=== PATIENT | female | born 1985 | race African-American/Black ===

== ENCOUNTER 2017-01-16 22:03 | Inpatient (IN) | payer OTHER ==
[2017-01-16] MEDS ORDERED: NORMAL SALINE 1000 ML 1,000 ML IV ONE (22:29)
[2017-01-16] MEDS ORDERED: LORAZEPAM INJ 2 MG/1 ML VIAL IV ONE ×2 (22:29→23:31)
--- NOTE | 2017-01-16 22:33 | ER Document Report ---
ED General - General Chief Complaint: Chest Pain Stated Complaint: DIFFICULTY BREATHING Time Seen by Provider: 01/16/17 22:24 Notes: Patient is a 31-year-old female presents with complaint of difficulty breathing and chest pain. She says she is felt short of breath over the last 2 3 days but then approximately an hour ago she came very short of breath has pain in her chest rates into her her lower back. No fevers. She has had a dry cough. No blood with her cough. No vomiting. She says only abdominal pain she has is some soreness in her upper abdomen from breathing hard. She has no history of asthma. She is a smoker. She is recent diagnosed with lupus. She is on the Depakote shot. She denies any recent leg pain or leg swelling. No history of DVT or PE. No history of coronary disease. She does admit to some anxiety due to her recent diagnosis is of lupus and rheumatoid arthritis. TRAVEL OUTSIDE OF THE [place] IN LAST 30 DAYS: No - Related Data Allergies/Adverse Reactions: No Known Allergies Allergy (Verified 03/25/14 02:56) Past Medical History - Social History Smoking Status: Current Every Day Smoker Frequency of alcohol use: None Drug Abuse: None Family History: None Patient has suicidal ideation: No Patient has homicidal ideation: No Pulmonary Medical History: Reports: Hx Asthma Renal/ Medical History: Denies: Hx Peritoneal Dialysis Past Surgical History: Reports: Hx Section - x3, Hx Tubal Ligation - Immunizations Immunizations up to date: Yes Hx Diphtheria, Pertussis, Tetanus Vaccination: Yes Review of Systems - Review of Systems Notes: My Normal Review Basic REVIEW OF SYSTEMS: CONSTITUTIONAL : Denies fever, chills, or sweats. Denies recent illness. EENT: Denies eye, ear, throat, or mouth pain or symptoms. Denies nasal or sinus congestion. CARDIOVASCULAR: Has chest pain. RESPIRATORY: Difficulty breathing GASTROINTESTINAL: Denies abdominal pain. Denies nausea, vomiting, or diarrhea. GENITOURINARY: Denies difficulty urinating, painful urination, burning, frequency, or blood in urine MUSCULOSKELETAL: Mild back pain SKIN: Denies rash or skin lesions. NEUROLOGICAL: Denies altered mental status or loss of consciousness. Denies headache. Denies weakness or paralysis or loss of use of either side. Denies problems with gait or speech. Denies sensory or motor loss. PSYCHIATRIC: Some anxiety. ALL OTHER SYSTEMS REVIEWED AND NEGATIVE. Physical Exam - Vital signs Vitals: Temp Pulse Resp BP Pulse Ox 99.9 F 136 H 20 146/90 H 99 01/16/17 22:13 01/16/17 22:13 01/16/17 22:13 01/16/17 22:13 01/16/17 22:13 - Notes Notes: General Appearance: Patient is very anxious appearing. She is breathing rapidly. She seems panicked. Vitals: reviewed, See vital signs table. Head: no swelling or tenderness to the head Eyes: PERRL, EOMI, Conjuctiva clear Mouth: No decreasd moisture Throat: No tonsillar inflammation, No airway obstruction, No lymphadenopathy Lungs: No wheezing, No rales, No rhonci, No accessory muscle use, good air exchange bilaterally. Heart: Tachycardic rate, Regular rythm, No murmur, no rub Abdomen: Normal BS, soft, No rigidity, No abdominal tenderness, Extremities: strength 5/5 in all extremities, good pulses in all extremities, no swelling or tenderness in the extremities, no edema. Skin: warm, dry, appropriate color, no rash Neuro: speech clear, oriented x 3, normal affect, responds appropriately to questions. Course - Re-evaluation Re-evalutation: 01/17/17 01:01 Patient's primary care physician is Janeth Lowery with [facility]. Her lupus doctor is Samara monroe with [facility]. She is currently on methotrexate, prednisone, and metformin. 01/17/17 01:04 Patient CTA of the chest is negative. I did do a quick bedside echo. She has no pericardial effusion on my bedside echo. I do not see any obvious wall motion abnormality. 01/17/17 Urinalysis shows that the patient has polynephritis her urinary tract infection. I am assuming that may be the pain that she has along her diaphragm around to her back most likely is from her kidneys now based on her urinalysis showing the large leukocyte Estrace and signs of infection. We will obtain ultrasounds of the kidneys to make sure is no evidence of hydronephrosis to make sure that there is no evidence of infected kidney stone. Her symptoms are consistent with that of a kidney stone being that she does not have severe pain in her flanks or into her lower abdomen; however, I will still obtain ultrasounds to make sure there is no hydronephrosis or obstruction that could make this UTI more complicated. 01/17/17 03:49 Well-appearing. Patient's ultrasound shows no evidence of hydronephrosis. She likely has pyelonephritis which most likely is causing urosepsis causing her tachycardia. She is not septic shock. Her blood pressure has been normal. I have started on Rocephin. Blood cultures and urine cultures have been drawn. Patient will be admitted to the hospital. I did speak with Dr. Hui who agrees to admit the patient. Dictation of this chart was performed using voice recognition software; therefore, there may be some unintended grammatical errors. - Vital Signs Vital signs: Temp Pulse Resp BP Pulse Ox 100.7 F H 136 H 23 H 153/97 H 100 01/17/17 03:08 01/16/17 22:13 01/16/17 23:01 01/16/17 23:01 01/16/17 23:01 - Laboratory Result Diagrams: 01/16/17 22:35 01/16/17 22:35 Laboratory results interpreted by me: 01/16/17 01/16/17 01/17/17 22:35 22:35 00:10 WBC 21.3 H Hgb 10.0 L Hct 31.0 L MCV 75 L MCH 24.3 L RDW 18.5 H Seg Neuts % (Manual) 87 H Band Neutrophils % 2 L Lymphocytes % (Manual) 8 L Abs Neuts (Manual) 19.0 H Potassium 3.1 L Glucose 132 H Alkaline Phosphatase 127 H Albumin 3.4 L Urine Protein 30 H Urine Blood MODERATE H Urine Urobilinogen 4.0 H Ur Leukocyte Esterase LARGE H - EKG Interpretation by Me Additional EKG results interpreted by me: 01/16/17 22:33 EKG is reviewed and interpreted by me. EKG shows sinus tachycardia with rate of [address] segment elevation or depression. No ischemic T-wave inversions. SD interval, QRS duration, QTc intervals are within normal range. No old EKG available for comparison. Discharge - Discharge Clinical Impression: Pyelonephritis, Tachycardia Condition: Stable Admitting Provider: Hospitalist Unit Admitted: [facility]
[2017-01-16 22:49] LABS: MEAN CORPUSCULAR HEMOGLOBIN 24.3 pg (27.0-33.4); MEAN CORPUSCULAR HGB CONC 32.2 g/dL (32.0-36.0); MEAN CORPUSCULAR VOLUME 75 fl (80-97); RED BLOOD COUNT 4.11 10^6/uL (3.72-5.28); RED CELL DISTRIBUTION WIDTH 18.5 % (11.5-14.0); WHITE BLOOD COUNT 21.3 10^3/uL (4.0-10.5)
--- NOTE | 2017-01-16 23:01 | RADIOLOGY REPORT (SQ) ---
EXAM DESCRIPTION: CHEST SINGLE VIEW COMPLETED DATE/TIME: 01/16/2017 10:42 pm REASON FOR STUDY: dyspnea COMPARISON: 04/01/2012 EXAM PARAMETERS: NUMBER OF VIEWS: One view. TECHNIQUE: Single frontal radiographic view of the chest acquired. RADIATION DOSE: NA LIMITATIONS: None. FINDINGS: LUNGS AND PLEURA: No opacities, masses or pneumothorax. No pleural effusion. MEDIASTINUM AND HILAR STRUCTURES: No masses. Contour normal. HEART AND VASCULAR STRUCTURES: Heart normal in size. Normal vasculature. BONES: No acute findings. HARDWARE: None in the chest. OTHER: No other significant finding. IMPRESSION: NO ACUTE RADIOGRAPHIC FINDING IN THE CHEST. TECHNICAL DOCUMENTATION: JOB ID: [id number]
[2017-01-16 23:06] LABS: ALANINE AMINOTRANSFERASE 43 U/L (9-52); ALBUMIN 3.4 g/dL (3.5-5.0); ALKALINE PHOSPHATASE 127 U/L (38-126); ANION GAP 14 (5-19); ASPARTATE AMINO TRANSFERASE 32 U/L (14-36); BAND NEUTROPHILS % (MANUAL) 2 % (3-5); BASOPHILS % (MANUAL) 0 % (0-2); BILIRUBIN,DIRECT 0.4 mg/dL (0.0-0.4); BILIRUBIN,TOTAL 0.4 mg/dL (0.2-1.3); BLOOD UREA NITROGEN 13 mg/dL (7-20); CALCIUM 9.3 mg/dL (8.4-10.2); CARBON DIOXIDE 25 mmol/L (22-30); CHLORIDE 99 mmol/L (98-107); CREATINE KINASE 72 U/L (30-135); CREATININE RESULT 0.78 mg/dL (0.52-1.25); EOSINOPHILS % (MANUAL) 0 % (0-6); GLUCOSE 132 mg/dL (75-110); LYMPHOCYTES % (MANUAL) 8 % (13-45); POTASSIUM 3.1 mmol/L (3.6-5.0); SODIUM 137.7 mmol/L (137-145); TOTAL CELLS COUNTED 100; TOTAL PROTEIN 6.5 g/dL (6.3-8.2)
[2017-01-16 23:08] LABS: HYPOCHROMASIA 2+
[2017-01-16 23:09] LABS: ANISOCYTOSIS 2+; MICROCYTOSIS 1+; OVALOCYTES 1+; PLATELET CLUMPS PRESENT; SCHISTOCYTES SLIGHT; TARGET CELLS 1+; TEAR DROP CELLS SLIGHT
[2017-01-16 23:23] LABS: CREATINE KINASE MB 0.44 ng/mL (<4.55)
[2017-01-16 23:28] LABS: TROPONIN I < 0.012 ng/mL
[2017-01-17] MEDS ORDERED: NORMAL SALINE 1000 ML 1,000 ML IV ONE (00:46)
--- NOTE | 2017-01-17 00:52 | RADIOLOGY REPORT (SQ) ---
EXAM DESCRIPTION: CTA CHEST COMPLETED DATE/TIME: 01/17/2017 12:21 am REASON FOR STUDY: dyspnea, chest pain COMPARISON: CR, same day. TECHNIQUE: CT scan of the chest performed using helical scanning technique with dynamic intravenous contrast injection. Images reviewed with lung, soft tissue and bone windows. Reconstructed coronal and sagittal MPR images reviewed. Additional 3 dimensional post-processing performed to develop Maximal Intensity Projection images (MS P). All images stored on PACS. All CT scanners at this facility use dose modulation, iterative reconstruction, and/or weight based d osing when appropriate to reduce radiation dose to as low as reasonably achievable (ALARA). [facility]: Dose Right [facility]: CareDose [facility]: Dose Right [facility]: Teradose 4D [facility]: [employer] CONTRAST TYPE AND DOSE: contrast/concentration: Isovue 370.00 mg/ml; Total Contrast Delivered: 100.0 ml; Total Saline Delivered: 44.0 ml Contrast bolus optimized for the pulmonary arteries. Not diagnostic for the aorta. RENAL FUNCTION: None required. The patient is less than 50 years old. RADIATION DOSE: Up-to-date CT equipment and radiation dose reduction techniques were employed. CTDIv ol: 27.1 mGy. DLP: 692 mGy-cm. . LIMITATIONS: None. FINDINGS: LUNGS AND PLEURA: No masses, infiltrates, pneumothorax. No pleural effusions, calcificati ons. AORTA AND GREAT VESSELS: No aneurysm. Contrast bolus not optimized for the aorta. HEART: No pericardial effusion. No significant coronary artery calcifications. PULMONARY ARTERIES: No emboli visualized in the main pulmonary arteries or the segmental branches. HILAR AND MEDIASTINAL STRUCTURES: No identified masses or abnormal nodes. HARDWARE: None in the chest. UPPER ABDOMEN: No significant findings. Limited exam. Small hiatal hernia. THYROID AND OTHER SOFT TISSUES: No masses. No adenopathy. BONES: No acute or significant finding. 3D MIPS: Confirm above findings. OTHER: No other significant finding. IMPRESSION: No acute cardiopulmonary findings. NO PULMONARY EMBOLI. COMMENT: Quality ID # [id number]: Final reports with documentation of one or more dose reduction techniques (e.g., Automated exposure control, adjustment of the mA and/or kV according to patient size, use of iterative reconstruction technique) TECHNICAL DOCUMENTATION: JOB ID: [id number] [employer]- All Rights Reserved
[2017-01-17] MEDS ORDERED: POTASSIUM CHLORIDE 10 MEQ TABLET.SA PO ONE ×2 (01:02→11:33)
[2017-01-17 01:24] LABS: APPEARANCE,URINE SLIGHTLY-CLOUDY; BILIRUBIN,URINE NEGATIVE (NEGATIVE); GLUCOSE, URINE NEGATIVE (NEGATIVE); KETONES,URINE NEGATIVE (NEGATIVE); LEUKOCYTE ESTERASE,URINE LARGE (NEGATIVE); NITRITE,URINE NEGATIVE (NEGATIVE); PROTEIN,URINE 30 mg/dL (NEGATIVE); URINE SPECIFIC GRAVITY 1.035
[2017-01-17] MEDS ORDERED: CEFTRIAXONE INJ 1000 MG VIAL IV ONE (01:40)
[2017-01-17 01:55] LABS: URINE BARBITURATES SCREEN NEGATIVE; URINE METHADONE SCREEN NEGATIVE; URINE OPIATES LOW NEGATIVE; URINE PHENCYCLIDINE SCREEN NEGATIVE
[2017-01-17] MEDS ORDERED: ACETAMINOPHEN 325 MG TABLET PO ONE (03:14)
--- NOTE | 2017-01-17 03:44 | RADIOLOGY REPORT (SQ) ---
EXAM DESCRIPTION: U/S RETROPERITON (RENAL/AORTA) COMPLETED DATE/TIME: 01/17/2017 3:28 am REASON FOR STUDY: pyelonephritis, eval for hydro COMPARISON: None. TECHNIQUE: Dynamic and static grayscale images acquired of the kidneys and bladder and recorded on P ACS. Additional selected color Doppler and spectral images recorded. LIMITATIONS: None. FINDINGS: RIGHT KIDNEY: Normal size. 13.3 cm. Normal echogenicity. No solid or suspicious masses. No hydronephrosis. No calcifications. LEFT KIDNEY: Normal size. 12.6 cm. Normal echogenicity. No solid or suspicious masses. No hydronep hrosis. No calcifications. BLADDER: No masses. Bilateral ureteral jet flow demonstrated. OTHER FINDINGS: No other significant finding. IMPRESSION: NORMAL RENAL AND BLADDER ULTRASOUND. TECHNICAL DOCUMENTATION: JOB ID: [id number] [email or web address]- All Rights Reserved
[2017-01-17] MEDS ORDERED: IPRATROPIUM/ALBUTEROL 0.5-2.5 MG/3 ML AMPUL NEB PRN (03:50)
[2017-01-17] MEDS ORDERED: ONDANSETRON HCL INJ/PF 4 MG/2 ML SDV IV PRN ×2 (03:50→13:00)
[2017-01-17] MEDS ORDERED: MAGNESIUM HYDROXIDE SUSP 30 ML UDCUP PO PRN (03:50)
[2017-01-17 04:11] LABS: ANION GAP 11 (5-19); BLOOD UREA NITROGEN 13 mg/dL (7-20); CALCIUM 8.8 mg/dL (8.4-10.2); CARBON DIOXIDE 26 mmol/L (22-30); CHLORIDE 103 mmol/L (98-107); CREATININE RESULT 0.73 mg/dL (0.52-1.25); GLUCOSE 131 mg/dL (75-110); POTASSIUM 3.3 mmol/L (3.6-5.0); SODIUM 140.4 mmol/L (137-145)
[2017-01-17 04:38] LABS: HEMATOCRIT 31.4 % (36.0-47.0); HGB HCT DIFFERENCE -1.4; MEAN CORPUSCULAR HEMOGLOBIN 23.9 pg (27.0-33.4); MEAN CORPUSCULAR VOLUME 75 fl (80-97); RED CELL DISTRIBUTION WIDTH 18.9 % (11.5-14.0); WHITE BLOOD COUNT 21.8 10^3/uL (4.0-10.5)
[2017-01-17] MEDS: NORMAL SALINE 1000 ML 1,000 ML IV SCH ×2 (04:46→07:40)
[2017-01-17] MEDS: POTASSI CL 20 MEQ/50 ML RIDER 20 MEQ/50 ML RTUPB IV SCH ×2 (04:47→07:39)
[2017-01-17 04:52] LABS: BAND NEUTROPHILS % (MANUAL) 3 % (3-5); BASOPHILS % (MANUAL) 0 % (0-2); EOSINOPHILS % (MANUAL) 0 % (0-6); LYMPHOCYTES % (MANUAL) 18 % (13-45); TOTAL CELLS COUNTED 100
[2017-01-17 04:57] LABS: ANISOCYTOSIS 2+; HYPOCHROMASIA 1+; MICROCYTOSIS 1+; OVALOCYTES SLIGHT; POIKILOCYTOSIS SLIGHT; TARGET CELLS SLIGHT; TEAR DROP CELLS SLIGHT
[2017-01-17] MEDS ORDERED: KETOROLAC TROMETHAMINE INJ/PF 30 MG/1 ML SDV IV PRN ×2 (05:32→13:00)
--- NOTE | 2017-01-17 05:50 | PDOC H&P ---
History of Present Illness Admission Date/PCP: 01/17/17 03:50 Patient complains of: Diffuse body aches History of Present Illness: ELIEL VALENTIN is a 31 year old female with a past medical history of obesity, diabetes, lupus and rheumatoid arthritis on methotrexate who had been in her usual state of health until approximately 48 hours prior to presentation with generalized aches and pains, shortness of breath and lower back pain. Denying dysuria or malodorous urine. In the emergency room she had an extensive workup including CTA of the chest and renal ultrasound which were negative. She has however found to have tachycardia, leukocytosis and pyuria and referred to the hospitalist for admission. Past Medical History Pulmonary Medical History: Reports: Asthma Endocrine Medical History: Reports: Diabetes Mellitus Type 2 Musculoskeltal Medical History: Reports: Arthritis Past Surgical History Past Surgical History: Reports: Section - x3, Tubal Ligation Social History Information Source: Patient, [facility] Records Lives with: Family Smoking Status: Current Every Day Smoker Frequency of Alcohol Use: None Drugs: None - Advance Directive Resuscitation Status: Full Code Family History Family History: None, DM Parental Family History Reviewed: Yes Children Family History Reviewed: Yes Sibling(s) Family History Reviewed.: Yes Medication/Allergy Home Medications: Cyclobenzaprine HCl [Flexeril 10 Mg Tablet] 10 mg PO TID #30 tablet 10/06/13 Naproxen 500 mg PO BID #20 tablet 10/06/13 Oxycodone HCl/Acetaminophen [Percocet 5-325 mg Tablet] 1 - 2 tab PO ASDIR PRN # 20 tablet 10/06/13 Cyclobenzaprine HCl [Flexeril 10 mg Tablet] 10 mg PO TIDP PRN #30 tab 03/25/14 Hydrocodone/Acetaminophen [Vicodin 5-300 mg Tablet] 1 - 2 tab PO ASDIR PRN #15 tab 03/25/14 Ibuprofen [Motrin 800 mg Tablet] 800 mg PO MEALS #90 tablet 03/25/14 Prednisone [Deltasone 10 mg Tablet] 10 mg PO ASDIR PRN #21 tablet 03/25/14 Allergies/Adverse Reactions: No Known Allergies Allergy (Verified 03/25/14 02:56) Review of Systems Constitutional: ABSENT: chills, fever(s), headache(s), weight gain, weight loss Eyes: ABSENT: visual disturbances Ears: ABSENT: hearing changes Cardiovascular: ABSENT: chest pain, dyspnea on exertion, edema, orthropnea, palpitations Respiratory: ABSENT: cough, hemoptysis Gastrointestinal: PRESENT: constipation. ABSENT: abdominal pain, diarrhea, hematemesis, hematochezia, nausea, vomiting Genitourinary: ABSENT: dysuria, hematuria Musculoskeletal: ABSENT: joint swelling Integumentary: ABSENT: rash, wounds Neurological: ABSENT: abnormal gait, abnormal speech, confusion, dizziness, focal weakness, syncope Psychiatric: ABSENT: anxiety, depression, homidical ideation, suicidal ideation Endocrine: ABSENT: cold intolerance, heat intolerance, polydipsia, polyuria Hematologic/Lymphatic: ABSENT: easy bleeding, easy bruising Physical Exam Vital Signs: Temp Pulse Resp BP Pulse Ox 100.0 F 136 H 27 H 119/76 99 01/17/17 04:55 01/16/17 22:13 01/17/17 04:01 01/17/17 04:01 01/17/17 04:01 General appearance: PRESENT: no acute distress, well-developed, well-nourished Head exam: PRESENT: atraumatic, normocephalic Eye exam: PRESENT: conjunctiva pink, EOMI, PERRLA. ABSENT: scleral icterus Ear exam: PRESENT: normal external ear exam Mouth exam: PRESENT: moist, tongue midline Neck exam: ABSENT: carotid bruit, JVD, lymphadenopathy, thyromegaly Respiratory exam: PRESENT: clear to auscultation [place]. ABSENT: rales, rhonchi, wheezes Cardiovascular exam: PRESENT: RRR. ABSENT: diastolic murmur, rubs, systolic murmur Pulses: PRESENT: normal dorsalis pedis pul Vascular exam: PRESENT: normal capillary refill GI/Abdominal exam: PRESENT: normal bowel sounds, soft. ABSENT: distended, guarding, mass, organolmegaly, rebound, tenderness Rectal exam: PRESENT: deferred Extremities exam: PRESENT: full ROM. ABSENT: calf tenderness, clubbing, pedal edema Neurological exam: PRESENT: alert, awake, oriented to person, oriented to place , oriented to time, oriented to situation, CN II-XII grossly intact. ABSENT: motor sensory deficit Psychiatric exam: PRESENT: appropriate affect, normal mood. ABSENT: homicidal ideation, suicidal ideation Skin exam: PRESENT: dry, intact, warm. ABSENT: cyanosis, rash Results Impressions: Chest X-Ray 01/16/17 22:29 IMPRESSION: NO ACUTE RADIOGRAPHIC FINDING IN THE CHEST. Chest/Abdomen CTA 01/16/17 23:30 IMPRESSION: No acute cardiopulmonary findings. NO PULMONARY EMBOLI. Renal Ultrasound 01/17/17 01:45 IMPRESSION: NORMAL RENAL AND BLADDER ULTRASOUND. Assessment & Plan - Diagnosis (1) Pyelonephritis Is this a current diagnosis for this admission?: Yes Plan: Telemetry admission, no evidence for obstruction empiric antibiotics, symptomatic management, follow-up CBC blood and urine culture (2) Sepsis Is this a current diagnosis for this admission?: Yes Plan: IV fluid challenge and reevaluation. (3) Diabetes Is this a current diagnosis for this admission?: Yes Plan: Outpatient regiment with sliding scale coverage (4) Anemia Is this a current diagnosis for this admission?: Yes Plan: Appears microcytic will initiate iron empirically and follow-up anemia labs. - Time Time Spent: 50 to 70 Minutes - Inpatient Certification Medical Necessity: Need Close Monitoring Due to Risk of Patient Decompensation
[2017-01-17] MEDS: ACETAMINOPHEN 325 MG TABLET PO PRN (08:21)
[2017-01-17] MEDS: HEPARIN SOD (PORCINE) 5,000 UNIT/ML 1 ML SYRINGE SUBCUT SCH ×3 (08:22→22:02)
[2017-01-17 09:11] LABS: FOLATE 5.62 ng/mL (>2.76)
[2017-01-17] MEDS ORDERED: PREDNISONE 10 MG TABLET PO SCH (10:00)
--- NOTE | 2017-01-17 10:03 | EKG REPORT ---
SEVERITY:- BORDERLINE ECG - SINUS TACHYCARDIA BORDERLINE T ABNORMALITIES, ANTERIOR LEADS : Confirmed by: Laura Hong MD 17-Jan-2017 10:02:22
[2017-01-17] MEDS: CEFTRIAXONE 1 GM/D5W RTU 1 GM/50 ML RTUPB IV SCH (10:06)
[2017-01-17] MEDS: DOCUSATE SODIUM 100 MG CAPSULE PO SCH ×2 (10:06→17:54)
[2017-01-17] MEDS ORDERED: NORMAL SALINE 1000 ML 1,000 ML IV PRN (11:28)
[2017-01-17] MEDS ORDERED: SENNOSIDES/DOCUSATE 8.6-50 MG 1 EACH TABLET PO PRN (12:16)
[2017-01-17] MEDS ORDERED: NICOTINE 7 MG/24 HR PATCH.TD24 TD ONE (12:45)
[2017-01-17] MEDS ORDERED: METFORMIN HCL 500 MG TABLET PO ONE (13:00)
[2017-01-17] MEDS: HYDROXYZINE PAMOATE 50 MG CAPSULE PO PRN (14:00)
--- NOTE | 2017-01-17 15:00 | PDOC PROGRESS REPORT ---
Subjective Progress Note for:: 01/17/17 Subjective:: Patient had a fever this morning of 101.4 Degrees Fahrenheit. Patient reports her shortness of breath has improved. Patient admits to constipation. Patient denies chest pain, shortness of breath, abdominal pain, nausea, vomiting, diarrhea, headache, new onset weakness. Patient admits to cocaine usage this weekend. Physical Exam Vital Signs: Temp Pulse Resp BP Pulse Ox 98.8 F 89 14 125/85 100 01/17/17 11:25 01/17/17 11:53 01/17/17 11:53 01/17/17 11:25 01/17/17 11:53 Intake & Output 01/16/17 01/17/17 01/18/17 06:59 06:59 06:59 Intake Total 1000 250 Balance 1000 250 Weight 97.3 kg Exam: General: Mildly diaphoretic, ill-appearing, obese, awake alert and oriented x3, no acute respiratory distress HEENT: AT/NC, PERRL, EOMI, oropharynx is moist, pink, no scleral icterus, no conjunctival injection Neck: No JVD, trachea midline Chest: Clear to auscultation bilaterally, no wheezes rhonchi or rales CV: Regular rate and rhythm, normal S1 and S2, no murmur, rub, or gallop Abdomen: Soft, nontender to palpation, nondistended, active bowel sounds; no rebound, rigidity, or guarding Extremities: No cyanosis, clubbing or edema Neuro: Cranial nerves II through XII are grossly intact without focal deficits; awake alert and oriented x3 Psych: Tearful and anxious Results Laboratory Results: 01/17/17 01/17/17 06:03 06:03 Retic Count (auto) 0.46 L Absolute Retic 0.017 L Iron 18.1 L TIBC 315 % Saturation 6 Ferritin 51.00 Vitamin B12 342.0 Folate 5.62 Impressions: Chest X-Ray 01/16/17 22:29 IMPRESSION: NO ACUTE RADIOGRAPHIC FINDING IN THE CHEST. Chest/Abdomen CTA 01/16/17 23:30 IMPRESSION: No acute cardiopulmonary findings. NO PULMONARY EMBOLI. Renal Ultrasound 01/17/17 01:45 IMPRESSION: NORMAL RENAL AND BLADDER ULTRASOUND. Assessment & Plan - Diagnosis (1) Sepsis Qualifiers: Sepsis type: sepsis due to unspecified organism Qualified Code(s): A41.9 - Sepsis, unspecified organism Is this a current diagnosis for this admission?: Yes Plan: Sepsis criteria met on admission: Selected Entries 01/16/17 01/17/17 22:13 07:26 Temperature 101.4 F H Pulse Rate 136 H Respiratory 20 Rate Patient appears to have pyelonephritis. Patient has received 5 L bolus. Continue IV fluids to maintain map greater than 65. Patient on Rocephin for this. (2) Pyelonephritis Is this a current diagnosis for this admission?: Yes Plan: Continue Rocephin pending culture (3) Iron deficiency anemia due to chronic blood loss Is this a current diagnosis for this admission?: Yes Plan: Patient reports that she is on Depo-Provera for her menorrhagia. Iron studies reveal iron deficiency anemia. Place patient on ferrous sulfate p.o. twice daily (4) Cocaine abuse Is this a current diagnosis for this admission?: Yes Plan: Have discouraged even recreational use (5) Tobacco abuse Is this a current diagnosis for this admission?: Yes Plan: Nicotine patch Encourage cessation (6) Rheumatoid arthritis Qualifiers: Rheumatoid arthritis location: unspecified site Rheumatoid factor presence : unspecified presence Qualified Code(s): M06.9 - Rheumatoid arthritis, unspecified Is this a current diagnosis for this admission?: Yes Plan: Patient is following with a field reimbursement manager as an outpatient. Continue daily prednisone. Patient reports that she took her methotrexate yesterday. Continue folic acid rescue. (7) Anemia Qualifiers: Anemia type: iron deficiency Iron deficiency anemia type: chronic blood loss Qualified Code(s): D50.0 - Iron deficiency anemia secondary to blood loss (chronic) Is this a current diagnosis for this admission?: Yes Plan: Patient has anemia secondary to iron deficiency from chronic blood loss, but also likely secondary to anemia of chronic disease, and anemia related to her methotrexate usage. 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 Consider stress dose steroids if blood pressure drops, but she reports she is only been on steroids for a couple of weeks. (10) Morbid obesity with BMI of 40.0-44.9, adult Is this a current diagnosis for this admission?: Yes Plan: Dietary consult Encourage weight loss (11) Depression Qualifiers: Depression Type: unspecified Qualified Code(s): F32.9 - Major depressive disorder, single episode, unspecified Is this a current diagnosis for this admission?: Yes Plan: Continue patient's Effexor. Have consulted psychology as patient appears to be quite anxious and have added hydroxyzine for this. Patient appears to have quite a bit of anxiety regarding her health disorders. Appreciate their input. - Time Time Spent with patient: 35 or more minutes Medications reviewed and adjusted accordingly: Yes
[2017-01-17] MEDS: HYDROCODONE/ACETAMINOPHEN 5-325 MG TABLET PO PRN (15:34)
[2017-01-17] MEDS: METFORMIN HCL 500 MG TABLET PO SCH (17:54)
[2017-01-17] MEDS: FERROUS SULFATE 325 MG TABLET PO SCH (17:54)
[2017-01-17] MEDS ORDERED: KETOROLAC TROMETHAMINE INJ/PF 30 MG/1 ML SDV ONE (21:58)
[2017-01-17] MEDS ORDERED: KETOROLAC TROMETHAMINE INJ/PF 30 MG/1 ML SDV IV ONE (22:00)
[2017-01-18] MEDS: HYDROCODONE/ACETAMINOPHEN 5-325 MG TABLET PO PRN ×3 (03:50→23:48)
[2017-01-18] MEDS: HEPARIN SOD (PORCINE) 5,000 UNIT/ML 1 ML SYRINGE SUBCUT SCH ×3 (06:09→21:31)
[2017-01-18 06:54] LABS: HEMATOCRIT 26.6 % (36.0-47.0); HEMOGLOBIN 8.7 g/dL (12.0-15.5); HGB HCT DIFFERENCE -0.5; MEAN CORPUSCULAR HEMOGLOBIN 24.5 pg (27.0-33.4); MEAN CORPUSCULAR HGB CONC 32.8 g/dL (32.0-36.0); MEAN CORPUSCULAR VOLUME 75 fl (80-97); RED BLOOD COUNT 3.57 10^6/uL (3.72-5.28); RED CELL DISTRIBUTION WIDTH 18.7 % (11.5-14.0); WHITE BLOOD COUNT 15.4 10^3/uL (4.0-10.5)
[2017-01-18 06:55] LABS: ABSOLUTE BASOPHILS # (AUTO) 0.1 10^3/uL (0.0-0.2); ABSOLUTE LYMPHOCYTES (AUTO) 2.6 10^3/uL (0.5-4.7); ABSOLUTE MONOCYTES (AUTO) 0.4 10^3/uL (0.1-1.4); ABSOLUTE NEUT (AUTO) 12.3 10^3/uL (1.7-8.2); BASOPHILS % (AUTO) 0.4 % (0-2); EOSINOPHILS % (AUTO) 0.2 % (0-6); LYMPHOCYTES % (AUTO) 16.8 % (13-45); MONOCYTES % (AUTO) 2.9 % (3-13); SEGMENTED NEUTROPHILS % (AUTO) 79.7 % (42-78)
[2017-01-18 06:56] LABS: ANION GAP 9 (5-19); BLOOD UREA NITROGEN 11 mg/dL (7-20); CALCIUM 8.6 mg/dL (8.4-10.2); CARBON DIOXIDE 21 mmol/L (22-30); CHLORIDE 109 mmol/L (98-107); CREATININE RESULT 0.67 mg/dL (0.52-1.25); GLUCOSE 102 mg/dL (75-110); POTASSIUM 4.1 mmol/L (3.6-5.0); SODIUM 138.8 mmol/L (137-145)
[2017-01-18] MEDS: NICOTINE 7 MG/24 HR PATCH.TD24 TD SCH (08:29)
[2017-01-18] MEDS: DOCUSATE SODIUM 100 MG CAPSULE PO SCH ×2 (08:29→17:44)
[2017-01-18] MEDS: VENLAFAXINE HCL 75 MG CAP.SR.24H PO SCH (08:30)
[2017-01-18] MEDS: ACETAMINOPHEN 325 MG TABLET PO PRN (08:30)
[2017-01-18] MEDS: PREDNISONE 5 MG TABLET PO SCH (08:31)
[2017-01-18] MEDS: CEFTRIAXONE 1 GM/D5W RTU 1 GM/50 ML RTUPB IV SCH (08:31)
[2017-01-18] MEDS: FOLIC ACID 1 MG TABLET PO SCH (08:31)
[2017-01-18] MEDS: METFORMIN HCL 500 MG TABLET PO SCH ×2 (08:31→16:01)
[2017-01-18] MEDS: FERROUS SULFATE 325 MG TABLET PO SCH ×2 (08:31→17:44)
[2017-01-18] MEDS: PRENATAL VITAMIN W-O CA NO5/FE FUMARATE/FA CAPSULE PO SCH (08:36)
--- NOTE | 2017-01-18 09:48 | EKG REPORT ---
SEVERITY:- BORDERLINE ECG - SINUS TACHYCARDIA INFERIOR Q WAVES, PROBABLY NORMAL VARIATION BORDERLINE T ABNORMALITIES, INFERIOR LEADS : Confirmed by: Gabriela Puente 18-Jan-2017 09:47:11
[2017-01-18] MEDS ORDERED: VENLAFAXINE HCL 75 MG TABLET PO SCH (10:00)
[2017-01-18] MEDS ORDERED: (PENDING PHARMACY ID) (Prednisone [Prednisone] 5 MG) PO SCH (10:00)
[2017-01-18 11:26] LABS: CREATINE KINASE MB 1.76 ng/mL (<4.55)
[2017-01-18 11:32] LABS: TROPONIN I 0.166 ng/mL
--- NOTE | 2017-01-18 15:06 | PDOC PROGRESS REPORT ---
Subjective Progress Note for:: 01/18/17 Subjective:: Patient is sitting comfortably on the bed getting her hair done by her niece when I visited her. Patient had a T-max of 102.8 Degrees Fahrenheit. Patient reports she is still constipated. Patient denies abdominal pain, nausea , vomiting, diarrhea, headache, new onset weakness. Patient had an episode of chest pain which was improved with Vistaril. Physical Exam Vital Signs: Temp Pulse Resp BP Pulse Ox 100.5 F H 115 H 14 130/83 H 98 01/18/17 07:25 01/18/17 10:12 01/18/17 10:12 01/18/17 07:25 01/18/17 10:12 Intake & Output 01/17/17 01/18/17 01/19/17 06:59 06:59 06:59 Intake Total 1000 4855 400 Output Total 1500 Balance 1000 3355 400 Weight 97.3 kg 102.3 kg Exam: General: obese, awake alert and oriented x3, no acute respiratory distress HEENT: AT/NC, PERRL, EOMI, oropharynx is moist, pink, no scleral icterus, no conjunctival injection Neck: No JVD, trachea midline Chest: Clear to auscultation bilaterally, no wheezes rhonchi or rales CV: Regular rate and rhythm, normal S1 and S2, no murmur, rub, or gallop Abdomen: Soft, nontender to palpation, nondistended, active bowel sounds; no rebound, rigidity, or guarding Extremities: No cyanosis, clubbing or edema Neuro: Cranial nerves II through XII are grossly intact without focal deficits; awake alert and oriented x3 Psych: Normal mood and affect Results Laboratory Results: 01/18/17 06:09 01/18/17 06:09 01/18/17 01/18/17 06:09 06:09 WBC 15.4 H RBC 3.57 L Hgb 8.7 L Hct 26.6 L MCV 75 L MCH 24.5 L MCHC 32.8 RDW 18.7 H Plt Count 334 Seg Neutrophils % 79.7 H Lymphocytes % 16.8 Monocytes % 2.9 L Eosinophils % 0.2 Basophils % 0.4 Absolute Neutrophils 12.3 H Absolute Lymphocytes 2.6 Absolute Monocytes 0.4 Absolute Eosinophils 0.0 Absolute Basophils 0.1 Sodium 138.8 Potassium 4.1 Chloride 109 H Carbon Dioxide 21 L Anion Gap 9 BUN 11 Creatinine 0.67 Est GFR ( Amer) > 60 Est GFR (Non-Af Amer) > 60 Glucose 102 Calcium 8.6 Magnesium 2.0 01/18/17 01/18/17 10:16 10:16 Creatine Kinase 87 CK-MB (CK-2) 1.76 Troponin I 0.166 Impressions: Chest X-Ray 01/16/17 22:29 IMPRESSION: NO ACUTE RADIOGRAPHIC FINDING IN THE CHEST. Chest/Abdomen CTA 01/16/17 23:30 IMPRESSION: No acute cardiopulmonary findings. NO PULMONARY EMBOLI. Renal Ultrasound 01/17/17 01:45 IMPRESSION: NORMAL RENAL AND BLADDER ULTRASOUND. Assessment & Plan - Diagnosis (1) Sepsis Qualifiers: Sepsis type: sepsis due to unspecified organism Qualified Code(s): A41.9 - Sepsis, unspecified organism Is this a current diagnosis for this admission?: Yes Plan: Sepsis criteria met on admission: Selected Entries 01/16/17 01/17/17 22:13 07:26 Temperature 101.4 F H Pulse Rate 136 H Respiratory 20 Rate Patient appears to have pyelonephritis. Patient has received 5 L bolus. Maintain map greater than 65. Due to patient's increasing fever curve, transition her to Zosyn. (2) Pyelonephritis Is this a current diagnosis for this admission?: Yes Plan: Transition to Zosyn pending results Patient continues to require inpatient admission for IV antibiotics and telemetry monitoring. (3) Iron deficiency anemia due to chronic blood loss Is this a current diagnosis for this admission?: Yes Plan: Patient reports that she is on Depo-Provera for her menorrhagia. Iron studies reveal iron deficiency anemia. Place patient on ferrous sulfate p.o. twice daily and Colace (4) Tobacco abuse Is this a current diagnosis for this admission?: Yes Plan: Nicotine patch Encourage cessation (5) Rheumatoid arthritis Qualifiers: Rheumatoid arthritis location: unspecified site Rheumatoid factor presence : unspecified presence Qualified Code(s): M06.9 - Rheumatoid arthritis, unspecified Is this a current diagnosis for this admission?: Yes Plan: Patient is following with a clinical nutrition manager as an outpatient. Continue daily prednisone. Patient reports that she took her methotrexate yesterday. Continue folic acid rescue. (6) Anemia Qualifiers: Anemia type: iron deficiency Iron deficiency anemia type: chronic blood loss Qualified Code(s): D50.0 - Iron deficiency anemia secondary to blood loss (chronic) Is this a current diagnosis for this admission?: Yes Plan: Patient has anemia secondary to iron deficiency from chronic blood loss, but also likely secondary to anemia of chronic disease, and anemia related to her methotrexate usage. 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 Consider stress dose steroids if blood pressure drops, but she reports she is only been on steroids for a couple of weeks. (9) Morbid obesity with BMI of 40.0-44.9, adult Is this a current diagnosis for this admission?: Yes (10) Depression Qualifiers: Depression Type: unspecified Qualified Code(s): F32.9 - Major depressive disorder, single episode, unspecified Is this a current diagnosis for this admission?: Yes Plan: Have consulted psychology. Appreciate their input. (11) Cocaine abuse Is this a current diagnosis for this admission?: Yes Plan: Have discouraged even recreational use (12) Elevated troponin I level Is this a current diagnosis for this admission?: Yes Plan: In the setting of patient's sepsis and tachycardia feel that this minor elevation is secondary to troponin I leak due to rate related and sepsis concerns. We will continue to trend these however. Continue to monitor patient on telemetry. - Time Time Spent with patient: 25-34 minutes Medications reviewed and adjusted accordingly: Yes - Inpatient Certification Based on my medical assessment, after consideration of the patient's comorbidities, presenting symptoms, or acuity I expect that the services needed warrant INPATIENT care.: Yes I certify that my determination is in accordance with my understanding of Medicare's requirements for reasonable and necessary INPATIENT services [42 CFR 412.3e].: Yes Medical Necessity: Need For IV Fluids, Need For Continuous Telemetry Monitoring , Need for IV Antibiotics Post Hospital Care: D/C [employer] Documentation
[2017-01-18] MEDS ORDERED: BISACODYL 10 MG SUPP.RECT PR ONE (16:00)
[2017-01-18] MEDS ORDERED: PIPERACILLIN SODIUM/TAZOBACTAM 4.5 GM in NORMAL SALINE 100 ML IV ONE (16:00)
[2017-01-18] MEDS: HYDROXYZINE PAMOATE 50 MG CAPSULE PO PRN ×2 (17:46→23:48)
[2017-01-18] MEDS: PIPERACILLIN SODIUM/TAZOBACTAM 4.5 GM in NORMAL SALINE 100 ML IV SCH (21:31)
[2017-01-18] MEDS: ZOLPIDEM TARTRATE 5 MG TABLET PO PRN (21:31)
[2017-01-19] MEDS: PIPERACILLIN SODIUM/TAZOBACTAM 4.5 GM in NORMAL SALINE 100 ML IV SCH ×4 (02:55→20:37)
[2017-01-19 03:51] LABS: HEMATOCRIT 25.5 % (36.0-47.0); HEMOGLOBIN 8.6 g/dL (12.0-15.5); HGB HCT DIFFERENCE 0.3; MEAN CORPUSCULAR HGB CONC 33.7 g/dL (32.0-36.0); MEAN CORPUSCULAR VOLUME 74 fl (80-97); RED BLOOD COUNT 3.43 10^6/uL (3.72-5.28); RED CELL DISTRIBUTION WIDTH 18.6 % (11.5-14.0); WHITE BLOOD COUNT 11.5 10^3/uL (4.0-10.5)
[2017-01-19 04:09] LABS: ANISOCYTOSIS 2+; BAND NEUTROPHILS % (MANUAL) 1 % (3-5); BASOPHILS % (MANUAL) 1 % (0-2); EOSINOPHILS % (MANUAL) 0 % (0-6); LYMPHOCYTES % (MANUAL) 12 % (13-45); MICROCYTOSIS 1+; TOTAL CELLS COUNTED 100; TOXIC VACUOLATION PRESENT
[2017-01-19 04:12] LABS: PLATELET CLUMPS PRESENT; TARGET CELLS 2+; TEAR DROP CELLS SLIGHT
[2017-01-19 04:14] LABS: HYPOCHROMASIA 1+; POIKILOCYTOSIS SLIGHT; POLYCHROMASIA SLIGHT
[2017-01-19] MEDS: HEPARIN SOD (PORCINE) 5,000 UNIT/ML 1 ML SYRINGE SUBCUT SCH ×3 (05:41→21:02)
[2017-01-19] MEDS: ACETAMINOPHEN 325 MG TABLET PO PRN (05:41)
[2017-01-19] MEDS: PREDNISONE 5 MG TABLET PO SCH (09:04)
[2017-01-19] MEDS: DOCUSATE SODIUM 100 MG CAPSULE PO SCH ×2 (09:05→17:08)
[2017-01-19] MEDS: FERROUS SULFATE 325 MG TABLET PO SCH ×2 (09:05→17:08)
[2017-01-19] MEDS: FOLIC ACID 1 MG TABLET PO SCH (09:05)
[2017-01-19] MEDS: METFORMIN HCL 500 MG TABLET PO SCH ×2 (09:05→17:08)
[2017-01-19] MEDS: PRENATAL VITAMIN W-O CA NO5/FE FUMARATE/FA CAPSULE PO SCH (09:06)
[2017-01-19] MEDS: VENLAFAXINE HCL 75 MG CAP.SR.24H PO SCH (09:06)
[2017-01-19] MEDS: NICOTINE 7 MG/24 HR PATCH.TD24 TD SCH (09:06)
[2017-01-19] MEDS: HYDROXYZINE PAMOATE 50 MG CAPSULE PO PRN (09:15)
--- NOTE | 2017-01-19 13:30 | PSYCHOLOGICAL NOTE ---
Psych Note - Psych Note Psych Note: ELIEL VALENTIN is a 31 year old female presented to [facility] with generalized aches and pains, shortness of breath and lower back pain. Psychiatric consultation was requested because patient is demonstrating high anxiety. Patient disclosed that she drove herself to [facility] ED because she was experiencing shortness of breath. She states that she was admitted because of dehydration and a kidney infection. Patient states that she does have a diagnosis of depression but denies having a outpatient mental health provider or receiving any inpatient treatments for psychiatric care. Patient disclosed that she received her depression medication, Effexor, from her primary care physician. She states she has been taking this for approximately 8-9 months. Clinician notes patient started to cry at this point. Patient states "I have been crying all day I am so sorry I does have a lot going on." Patient disclosed that she was recently diagnosed with lupus, diabetes, and osteoarthritis approximately 1 month ago. She continued disclosed that she just keeps taking care of anybody else and her current admission into the hospital as an example of this. She states that she does not take care of her self and so busy taking care of her 3 children that she let a kidney infection get to the point where she needed hospitalization. When asked when the last time patient was able to do anything fun for herself patient started to laugh and stated "last night I actually went out to dinner and that is when I came home and realized he was having difficulty breathing" so came to [facility] ED. Patient is alert and orientated to person place, time and circumstance. Mood is dysphoric with tearful affect. Patient denies suicidal and homicidal ideation. Patient denies auditory visual hallucinations. Delusions were absent and behaviors congruent with intact reality based presentation i.e. organized, linear, rational thinking. Eye contact was well-maintained. Intellectual abilities appear to be within the average range. Conversational speech was within normal rate tone and prosody. Attention and concentration was good. Insight, judgment, impulse control is good. 300 (F32.9) unspecified depressive disorder per history provided by patient Impression\\plan: Patient is considered psychiatrically clear for discharge. Patient does not meet IVC criteria per [place] GS 122C. Patient denies suicidal homicidal ideation. Delusions were absent and behaviors congruent with intact reality based presentation i.e. organized, linear, rational thinking. Patient is experiencing situational depression surrounding new diagnosis of lupus, diabetes, and osteoarthritis. Patient was able to disclosed that she has neglected her self-care and engaged in conversation on ways to fix this i.e. going to therapy to process feelings around new diagnoses and taking time for her self. Patient feels her medications have worked until just recently with the additional stressors. At this time, a more effective intervention to deal with the situational depression would be to engage in therapeutic services. Patient has been able to demonstrate self awareness ( i.e. able to identify her stressors and lack of self care). Patient states she is ready to take positive action. Dr. Riley was consulted on the care and management of this patient.
--- NOTE | 2017-01-19 14:22 | PDOC PROGRESS REPORT ---
Subjective Progress Note for:: 01/19/17 Subjective:: Patient is sitting comfortably on the bed with her significant other and 2 cousins present. I saw this patient with the nurse present. Patient had a T-max of 100.2 Degrees Fahrenheit. Patient reports her constipation has resolved. She admits to fever and chills. Patient denies shortness of breath, chest pain, abdominal pain, nausea, vomiting, diarrhea, headache, new onset weakness. Patient several episodes of chest pain which improved with Vistaril. Patient is currently chest pain-free. Physical Exam Vital Signs: Temp Pulse Resp BP Pulse Ox 99.2 F 88 16 139/86 H 100 01/19/17 07:09 01/19/17 07:09 01/19/17 07:09 01/19/17 07:09 01/19/17 07:09 Intake & Output 01/18/17 01/19/17 01/20/17 06:59 06:59 06:59 Intake Total 4855 1850 Output Total 1500 Balance 3355 1850 Weight 102.3 kg Exam: General: obese, awake alert and oriented x3, no acute respiratory distress HEENT: AT/NC, PERRL, EOMI, oropharynx is moist, pink, no scleral icterus, no conjunctival injection Neck: No JVD, trachea midline Chest: Clear to auscultation bilaterally, no wheezes rhonchi or rales CV: Regular rate and rhythm, normal S1 and S2, no murmur, rub, or gallop Abdomen: Soft, nontender to palpation, nondistended, active bowel sounds; no rebound, rigidity, or guarding Extremities: No cyanosis, clubbing; trace edema Neuro: Cranial nerves II through XII are grossly intact without focal deficits; awake alert and oriented x3 Psych: Normal mood and affect Results Laboratory Results: 01/19/17 03:30 01/18/17 06:09 01/19/17 03:30 WBC 11.5 H RBC 3.43 L Hgb 8.6 L Hct 25.5 L MCV 74 L MCH 25.0 L MCHC 33.7 RDW 18.6 H Plt Count 364 Seg Neutrophils % Not Reportable Lymphocytes % Not Reportable Monocytes % Not Reportable Eosinophils % Not Reportable Basophils % Not Reportable Absolute Neutrophils Not Reportable Absolute Lymphocytes Not Reportable Absolute Monocytes Not Reportable Absolute Eosinophils Not Reportable Absolute Basophils Not Reportable 01/18/17 01/18/17 01/18/17 10:16 10:16 15:08 Creatine Kinase 87 CK-MB (CK-2) 1.76 Troponin I 0.166 0.085 01/18/17 01/19/17 21:00 03:30 Creatine Kinase CK-MB (CK-2) Troponin I 0.068 0.059 Impressions: Chest X-Ray 01/16/17 22:29 IMPRESSION: NO ACUTE RADIOGRAPHIC FINDING IN THE CHEST. Chest/Abdomen CTA 01/16/17 23:30 IMPRESSION: No acute cardiopulmonary findings. NO PULMONARY EMBOLI. Renal Ultrasound 01/17/17 01:45 IMPRESSION: NORMAL RENAL AND BLADDER ULTRASOUND. Assessment & Plan - Diagnosis (1) Sepsis Qualifiers: Sepsis type: sepsis due to unspecified organism Qualified Code(s): A41.9 - Sepsis, unspecified organism Is this a current diagnosis for this admission?: Yes Plan: Sepsis criteria met on admission: Selected Entries 01/16/17 01/17/17 22:13 07:26 Temperature 101.4 F H Pulse Rate 136 H Respiratory 20 Rate Patient appears to have pyelonephritis. Patient has received 5 L bolus. Maintain map greater than 65. On Zosyn day #2. (2) Pyelonephritis Is this a current diagnosis for this admission?: Yes Plan: On Zosyn day #2 Patient continues to require inpatient admission for IV antibiotics Patient patient fever curve improving. Would like to see patient without fever for 24 hours prior to discharge. (3) Iron deficiency anemia due to chronic blood loss Is this a current diagnosis for this admission?: Yes Plan: Patient reports that she is on Depo-Provera for her menorrhagia. Iron studies reveal iron deficiency anemia. Place patient on ferrous sulfate p.o. twice daily and Colace (4) Tobacco abuse Is this a current diagnosis for this admission?: Yes Plan: Nicotine patch Encourage cessation (5) Anemia Qualifiers: Anemia type: iron deficiency Iron deficiency anemia type: chronic blood loss Qualified Code(s): D50.0 - Iron deficiency anemia secondary to blood loss (chronic) Is this a current diagnosis for this admission?: Yes Plan: Patient has anemia secondary to iron deficiency from chronic blood loss, but also likely secondary to anemia of chronic disease, and anemia related to her methotrexate usage. 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 Is this a current diagnosis for this admission?: Yes Plan: Continue metformin twice daily (7) Chronic steroid use Is this a current diagnosis for this admission?: Yes (8) Depression Qualifiers: Depression Type: unspecified Qualified Code(s): F32.9 - Major depressive disorder, single episode, unspecified Is this a current diagnosis for this admission?: Yes (9) Cocaine abuse Is this a current diagnosis for this admission?: Yes Plan: Have discouraged even recreational use (10) Elevated troponin I level Is this a current diagnosis for this admission?: Yes Plan: In the setting of patient's sepsis and tachycardia feel that this minor elevation is secondary to troponin I leak due to rate related and sepsis concerns. These have trended down and patient's chest pain is relieved with Vistaril. (11) SLE (systemic lupus erythematosus) Qualifiers: Systemic lupus erythematosus type: unspecified Systemic lupus erythematosus organ involvement: unspecified Qualified Code(s): M32.9 - Systemic lupus erythematosus, unspecified Is this a current diagnosis for this admission?: Yes Plan: Patient reports a recent diagnosis of SLE for which she is taking chronic prednisone. Continue 5 mg of prednisone and she will follow with her outpatient nursing attendant. (12) Morbid obesity with BMI of 40.0-44.9, adult Is this a current diagnosis for this admission?: Yes
[2017-01-19] MEDS: HYDROCODONE/ACETAMINOPHEN 5-325 MG TABLET PO PRN (21:02)
[2017-01-20] MEDS: HYDROXYZINE PAMOATE 50 MG CAPSULE PO PRN ×3 (00:40→21:49)
[2017-01-20] MEDS: ZOLPIDEM TARTRATE 5 MG TABLET PO PRN ×2 (00:40→21:52)
[2017-01-20] MEDS: PIPERACILLIN SODIUM/TAZOBACTAM 4.5 GM in NORMAL SALINE 100 ML IV SCH (02:16)
[2017-01-20 04:49] LABS: HEMATOCRIT 25.4 % (36.0-47.0); HEMOGLOBIN 8.4 g/dL (12.0-15.5); HGB HCT DIFFERENCE -0.2; MEAN CORPUSCULAR HEMOGLOBIN 24.9 pg (27.0-33.4); MEAN CORPUSCULAR HGB CONC 33.1 g/dL (32.0-36.0); MEAN CORPUSCULAR VOLUME 75 fl (80-97); RED BLOOD COUNT 3.39 10^6/uL (3.72-5.28); RED CELL DISTRIBUTION WIDTH 18.2 % (11.5-14.0); WHITE BLOOD COUNT 10.6 10^3/uL (4.0-10.5)
[2017-01-20 05:19] LABS: BAND NEUTROPHILS % (MANUAL) 1 % (3-5); BASOPHILS % (MANUAL) 0 % (0-2); EOSINOPHILS % (MANUAL) 4 % (0-6); LYMPHOCYTES % (MANUAL) 26 % (13-45); TOTAL CELLS COUNTED 100
[2017-01-20 05:20] LABS: TOXIC VACUOLATION PRESENT
[2017-01-20 05:22] LABS: ANISOCYTOSIS 2+; HYPOCHROMASIA SLIGHT; MICROCYTOSIS 1+; PLATELET CLUMPS PRESENT; POIKILOCYTOSIS SLIGHT; POLYCHROMASIA SLIGHT; TARGET CELLS 2+; TEAR DROP CELLS SLIGHT
[2017-01-20] MEDS: HEPARIN SOD (PORCINE) 5,000 UNIT/ML 1 ML SYRINGE SUBCUT SCH ×3 (05:38→21:49)
[2017-01-20] MEDS: HYDROCODONE/ACETAMINOPHEN 5-325 MG TABLET PO PRN (05:44)
[2017-01-20] MEDS: METFORMIN HCL 500 MG TABLET PO SCH ×2 (09:18→17:15)
[2017-01-20] MEDS: NICOTINE 7 MG/24 HR PATCH.TD24 TD SCH (09:18)
[2017-01-20] MEDS: PREDNISONE 5 MG TABLET PO SCH (09:19)
[2017-01-20] MEDS: VENLAFAXINE HCL 75 MG CAP.SR.24H PO SCH (09:19)
[2017-01-20] MEDS: FERROUS SULFATE 325 MG TABLET PO SCH ×2 (09:19→17:15)
[2017-01-20] MEDS: PRENATAL VITAMIN W-O CA NO5/FE FUMARATE/FA CAPSULE PO SCH (09:19)
[2017-01-20] MEDS: FOLIC ACID 1 MG TABLET PO SCH (09:19)
[2017-01-20] MEDS: DOCUSATE SODIUM 100 MG CAPSULE PO SCH ×2 (09:20→17:16)
[2017-01-20] MEDS: LEVOFLOXACIN 750 MG TABLET PO SCH (09:20)
[2017-01-20] MEDS ORDERED: FLUCONAZOLE 100 MG TABLET PO ONE (11:00)
--- NOTE | 2017-01-20 16:31 | PDOC PROGRESS REPORT ---
Subjective Progress Note for:: 01/20/17 Subjective:: She has been afebrile for the last 24 hours. Patient reports her constipation has resolved. She admits to itchy vaginal discharge. patient denies Chest pain,shortness of breath, chest pain, abdominal pain, nausea, vomiting, diarrhea, headache, new onset weakness. Physical Exam Vital Signs: Temp Pulse Resp BP Pulse Ox 98.8 F 70 20 148/98 H 100 01/20/17 03:34 01/20/17 03:34 01/20/17 03:34 01/20/17 03:34 01/20/17 03:34 Intake & Output 01/19/17 01/20/17 01/21/17 06:59 06:59 06:59 Intake Total 1850 1404 Balance 1850 1404 Weight 98.6 kg Exam: General: obese, awake alert and oriented x3, no acute respiratory distress HEENT: AT/NC, PERRL, EOMI, oropharynx is moist, pink, no scleral icterus, no conjunctival injection Neck: No JVD, trachea midline Chest: Clear to auscultation bilaterally, no wheezes rhonchi or rales CV: Regular rate and rhythm, normal S1 and S2, no murmur, rub, or gallop Abdomen: Soft, nontender to palpation, nondistended, active bowel sounds; no rebound, rigidity, or guarding Extremities: No cyanosis, clubbing; trace edema Neuro: Cranial nerves II through XII are grossly intact without focal deficits; awake alert and oriented x3 Psych: Normal mood and affect Results Laboratory Results: 01/20/17 04:00 01/18/17 06:09 01/20/17 04:00 WBC 10.6 H RBC 3.39 L Hgb 8.4 L Hct 25.4 L MCV 75 L MCH 24.9 L MCHC 33.1 RDW 18.2 H Plt Count 421 Seg Neutrophils % Not Reportable Lymphocytes % Not Reportable Monocytes % Not Reportable Eosinophils % Not Reportable Basophils % Not Reportable Absolute Neutrophils Not Reportable Absolute Lymphocytes Not Reportable Absolute Monocytes Not Reportable Absolute Eosinophils Not Reportable Absolute Basophils Not Reportable 01/18/17 01/18/17 01/18/17 10:16 10:16 15:08 Creatine Kinase 87 CK-MB (CK-2) 1.76 Troponin I 0.166 0.085 01/18/17 01/19/17 21:00 03:30 Creatine Kinase CK-MB (CK-2) Troponin I 0.068 0.059 Impressions: Chest X-Ray 01/16/17 22:29 IMPRESSION: NO ACUTE RADIOGRAPHIC FINDING IN THE CHEST. Chest/Abdomen CTA 01/16/17 23:30 IMPRESSION: No acute cardiopulmonary findings. NO PULMONARY EMBOLI. Renal Ultrasound 01/17/17 01:45 IMPRESSION: NORMAL RENAL AND BLADDER ULTRASOUND. Assessment & Plan - Diagnosis (1) Sepsis Qualifiers: Sepsis type: sepsis due to unspecified organism Qualified Code(s): A41.9 - Sepsis, unspecified organism Is this a current diagnosis for this admission?: Yes Plan: Sepsis criteria met on admission: Selected Entries 01/16/17 01/17/17 22:13 07:26 Temperature 101.4 F H Pulse Rate 136 H Respiratory 20 Rate Patient appears to have pyelonephritis. Patient has received 5 L bolus. Maintain map greater than 65. Transition patient to Levaquin if she remains afebrile on this without incident will be able to discharge home in a.m. (2) Pyelonephritis Is this a current diagnosis for this admission?: Yes Plan: Transition to oral Levaquin. If no fever for the next 24 hours may be discharged home on oral Levaquin for her pyelonephritis (3) Iron deficiency anemia due to chronic blood loss Is this a current diagnosis for this admission?: Yes Plan: Patient reports that she is on Depo-Provera for her menorrhagia. Iron studies reveal iron deficiency anemia. Place patient on ferrous sulfate p.o. twice daily and Colace (4) Tobacco abuse Is this a current diagnosis for this admission?: Yes Plan: Nicotine patch Encourage cessation (5) Anemia Qualifiers: Anemia type: iron deficiency Iron deficiency anemia type: chronic blood loss Qualified Code(s): D50.0 - Iron deficiency anemia secondary to blood loss (chronic) Is this a current diagnosis for this admission?: Yes Plan: Patient has anemia secondary to iron deficiency from chronic blood loss, but also likely secondary to anemia of chronic disease, and anemia related to her methotrexate usage. 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 Consider stress dose steroids if blood pressure drops, but she reports she is only been on steroids for a couple of weeks. (8) Depression Qualifiers: Depression Type: unspecified Qualified Code(s): F32.9 - Major depressive disorder, single episode, unspecified Is this a current diagnosis for this admission?: Yes Plan: Continue Effexor and hydroxyzine for as needed anxiety. Have discussed with patient therapy and exercises modalities of treatment as well. (9) Cocaine abuse Is this a current diagnosis for this admission?: Yes Plan: Have discouraged even recreational use (10) Elevated troponin I level Is this a current diagnosis for this admission?: Yes Plan: In the setting of patient's sepsis and tachycardia feel that this minor elevation is secondary to troponin I leak due to rate related and sepsis concerns. These have trended down and patient's chest pain is relieved with Vistaril. (11) SLE (systemic lupus erythematosus) Qualifiers: Systemic lupus erythematosus type: unspecified Systemic lupus erythematosus organ involvement: unspecified Qualified Code(s): M32.9 - Systemic lupus erythematosus, unspecified Is this a current diagnosis for this admission?: Yes Plan: Patient reports a recent diagnosis of SLE for which she is taking chronic prednisone. Continue 5 mg of prednisone and she will follow with her outpatient fisher lampara net. (12) Morbid obesity with BMI of 40.0-44.9, adult Is this a current diagnosis for this admission?: Yes - Time Time Spent with patient: 25-34 minutes Medications reviewed and adjusted accordingly: Yes Anticipated discharge: Home Within: within 24 hours
[2017-01-21] MEDS: HEPARIN SOD (PORCINE) 5,000 UNIT/ML 1 ML SYRINGE SUBCUT SCH ×2 (05:17→15:01)
[2017-01-21] MEDS: HYDROCODONE/ACETAMINOPHEN 5-325 MG TABLET PO PRN (06:57)
[2017-01-21] MEDS: FERROUS SULFATE 325 MG TABLET PO SCH (09:26)
[2017-01-21] MEDS: VENLAFAXINE HCL 75 MG CAP.SR.24H PO SCH (09:26)
[2017-01-21] MEDS: NICOTINE 7 MG/24 HR PATCH.TD24 TD SCH (09:26)
[2017-01-21] MEDS: METFORMIN HCL 500 MG TABLET PO SCH (09:26)
[2017-01-21] MEDS: FOLIC ACID 1 MG TABLET PO SCH (09:26)
[2017-01-21] MEDS: PREDNISONE 5 MG TABLET PO SCH (09:27)
[2017-01-21] MEDS: DOCUSATE SODIUM 100 MG CAPSULE PO SCH (09:27)
[2017-01-21] MEDS: LEVOFLOXACIN 750 MG TABLET PO SCH (09:27)
[2017-01-21] MEDS: PRENATAL VITAMIN W-O CA NO5/FE FUMARATE/FA CAPSULE PO SCH (09:27)
[2017-01-21] MEDS: HYDROXYZINE PAMOATE 50 MG CAPSULE PO PRN (10:22)
--- NOTE | 2017-01-21 14:17 | PDOC PROGRESS REPORT ---
Physical Exam Vital Signs: Temp Pulse Resp BP Pulse Ox 98.2 F 71 18 128/85 H 99 01/21/17 07:32 01/21/17 07:32 01/21/17 07:32 01/21/17 07:32 01/21/17 07:32 Intake & Output 01/20/17 01/21/17 01/22/17 06:59 06:59 06:59 Intake Total 1404 1379 Balance 1404 1379 Weight 98.6 kg 97.1 kg Results Laboratory Results: 01/20/17 04:00 01/18/17 06:09 01/18/17 01/18/17 01/18/17 10:16 10:16 15:08 Creatine Kinase 87 CK-MB (CK-2) 1.76 Troponin I 0.166 0.085 01/18/17 01/19/17 21:00 03:30 Creatine Kinase CK-MB (CK-2) Troponin I 0.068 0.059 Impressions: Chest X-Ray 01/16/17 22:29 IMPRESSION: NO ACUTE RADIOGRAPHIC FINDING IN THE CHEST. Chest/Abdomen CTA 01/16/17 23:30 IMPRESSION: No acute cardiopulmonary findings. NO PULMONARY EMBOLI. Renal Ultrasound 01/17/17 01:45 IMPRESSION: NORMAL RENAL AND BLADDER ULTRASOUND. Assessment & Plan - Diagnosis (1) Sepsis Qualifiers: Sepsis type: sepsis due to unspecified organism Qualified Code(s): A41.9 - Sepsis, unspecified organism Is this a current diagnosis for this admission?: Yes (2) Pyelonephritis Is this a current diagnosis for this admission?: Yes (3) Iron deficiency anemia due to chronic blood loss Is this a current diagnosis for this admission?: Yes (4) Elevated troponin I level Is this a current diagnosis for this admission?: Yes (5) Chronic steroid use Is this a current diagnosis for this admission?: Yes (6) Cocaine abuse Is this a current diagnosis for this admission?: Yes (7) Depression Qualifiers: Depression Type: unspecified Qualified Code(s): F32.9 - Major depressive disorder, single episode, unspecified Is this a current diagnosis for this admission?: Yes (8) Diabetes Qualifiers: 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 Diabetes mellitus complication status: with unspecified complications Diabetes mellitus vermin exterminator insulin use: without prison use Qualified Code(s): 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
--- NOTE | 2017-01-21 14:30 | PDOC DISCHARGE SUMMARY ---
General - Admit/Disc Date/PCP Admission Date/Primary Care Provider: 01/17/17 03:50 Discharge Date: 01/21/17 - Discharge Diagnosis (1) Sepsis Is this a current diagnosis for this admission?: Yes (2) Pyelonephritis Is this a current diagnosis for this admission?: Yes (3) Iron deficiency anemia due to chronic blood loss Is this a current diagnosis for this admission?: Yes (4) Elevated troponin I level Is this a current diagnosis for this admission?: Yes (5) Chronic steroid use Is this a current diagnosis for this admission?: Yes (6) Cocaine abuse Is this a current diagnosis for this admission?: Yes (7) Depression Is this a current diagnosis for this admission?: Yes (8) Diabetes Is this a current diagnosis for this admission?: Yes (9) Morbid obesity with BMI of 40.0-44.9, adult Is this a current diagnosis for this admission?: Yes (10) SLE (systemic lupus erythematosus) Is this a current diagnosis for this admission?: Yes (11) Tobacco abuse Is this a current diagnosis for this admission?: Yes - Additional Information Resuscitation Status: Full Code Discharge Diet: Cardiac, Diabetic Discharge Activity: Activity As Tolerated, Balance Activity w/Rest Home Medications: Folic Acid 1 mg PO DAILY 01/17/17 Ibuprofen [Motrin 800 mg Tablet] 800 mg PO Q8HP PRN 01/17/17 Metformin HCl [Glucophage 500 mg Tablet] 500 mg PO BIDACBS 01/17/17 Methotrexate Sodium [Methotrexate] 5 tab PO WE@1000 01/17/17 Prednisone 5 mg PO DAILY 01/17/17 Venlafaxine HCl [Venlafaxine HCl ER] 150 mg PO DAILY 01/17/17 Hydroxyzine Pamoate [Vistaril 50 mg Capsule] 50 mg PO Q6HP PRN #30 capsule 01/21 Levofloxacin [Levaquin 750 mg Tablet] 750 mg PO DAILY #10 tablet 01/21/17 Additional Information: Stop cocaine and tobacco. Stress test outpatient with primary care physician in 2 weeks after completing treatment for sepsis. Return to the emergency room if symptoms recur. History of Present Illness Patient complains of: Diffuse body aches and pain History of Present Illness: ELIEL VALENTIN is a 31 year old female with a past medical history of obesity, diabetes, lupus and rheumatoid arthritis on methotrexate who had been in her usual state of health until approximately 48 hours prior to presentation with generalized aches and pains, shortness of breath and lower back pain. Denying dysuria or malodorous urine. In the emergency room she had an extensive workup including CTA of the chest and renal ultrasound which were negative. She has however found to have tachycardia, leukocytosis and pyuria and referred to the hospitalist for admission. Hospital Course Hospital Course: The patient was admitted to [facility]. The patient was placed on broad-spectrum antibiotic for pyelonephritis and urinary tract infection and possible sepsis. Serial cardiac enzymes were obtained and one level was abnormal. Patient's urine culture grew E. coli, and blood culture grew E. coli as well. After 48 hours of treatment the patient aches and pain significantly improved. Patient reportedly with some depression and Vistaril started, psychiatry was consulted and eventually cleared the patient to be discharged and follow-up on an outpatient basis. The patient improved. Intravenous antibiotic transition to oral. Patient wanted to go home and continue treatment outpatient. The rest of the hospital stays unremarkable. Physical Exam Vital Signs: Temp Pulse Resp BP Pulse Ox 98.2 F 71 18 128/85 H 99 01/21/17 07:32 01/21/17 07:32 01/21/17 07:32 01/21/17 07:32 01/21/17 07:32 Intake & Output 01/20/17 01/21/17 01/22/17 06:59 06:59 06:59 Intake Total 1404 1379 Balance 1404 1379 Weight 98.6 kg 97.1 kg General appearance: PRESENT: no acute distress, cooperative, morbidly obese Head exam: PRESENT: normocephalic Eye exam: PRESENT: EOMI Mouth exam: PRESENT: moist, neck supple Neck exam: ABSENT: JVD Respiratory exam: PRESENT: clear to auscultation [place]. ABSENT: rhonchi, wheezes Cardiovascular exam: PRESENT: RRR, +S1, +S2. ABSENT: gallop GI/Abdominal exam: PRESENT: normal bowel sounds, soft Extremities exam: ABSENT: pedal edema Neurological exam: PRESENT: alert, awake, oriented to person, oriented to place , oriented to time, oriented to situation Skin exam: PRESENT: dry, warm. ABSENT: cyanosis Results Laboratory Results: 01/20/17 04:00 01/18/17 06:09 09/29/17 09/29/17 09/29/17 10:16 10:16 15:08 Creatine Kinase 87 CK-MB (CK-2) 1.76 Troponin I 0.166 0.085 01/18/17 01/19/17 21:00 03:30 Creatine Kinase CK-MB (CK-2) Troponin I 0.068 0.059 Impressions: Chest X-Ray 01/16/17 22:29 IMPRESSION: NO ACUTE RADIOGRAPHIC FINDING IN THE CHEST. Chest/Abdomen CTA 01/16/17 23:30 IMPRESSION: No acute cardiopulmonary findings. NO PULMONARY EMBOLI. Renal Ultrasound 01/17/17 01:45 IMPRESSION: NORMAL RENAL AND BLADDER ULTRASOUND. Qualifiers PATEINT BEING DISCHARGED WITH ANY OF THE FOLLOWING DIAGNOSIS?: No Plan Discharge Plan: Follow-up with primary care physician in 1 week. Follow-up with mental health in 2 weeks. Time Spent: Less than 30 Minutes
[2017-01-21 14:41] VITALS: BP 125/67
== END 2017-01-21 15:06 | disposition home or self-care (01) | DRG 872 ==
LOC: ER 22:03 → EH 01-17 03:50 → UNDOADMIN 01-17 04:13 → EH 01-17 04:13 → 3N 01-17 05:30
PROVIDERS: ADMIT Internal Medicine; ATTEND Internal Medicine
DX: A41.51 Sepsis due to Escherichia coli [E. coli] (principal); N12 Tubulo-interstitial nephritis, not specified as acute or chronic; Z68.41 Body mass index [BMI] 40.0-44.9, adult; D50.0 Iron deficiency anemia secondary to blood loss (chronic); F14.10 Cocaine abuse, uncomplicated; E11.9 Type 2 diabetes mellitus without complications; F17.200 Nicotine dependence, unspecified, uncomplicated; M06.9 Rheumatoid arthritis, unspecified; T45.1X5A Adverse effect of antineoplastic and immunosuppressive drugs, initial encounter; E66.01 Morbid (severe) obesity due to excess calories; F32.9 Major depressive disorder, single episode, unspecified; R74.8 Abnormal levels of other serum enzymes; M32.9 Systemic lupus erythematosus, unspecified; M19.90 Unspecified osteoarthritis, unspecified site; Z79.82 Long term (current) use of aspirin; Z98.51 Tubal ligation status; Z83.3 Family history of diabetes mellitus; Z79.84 Long term (current) use of oral hypoglycemic drugs
CPT/HCPCS: 36415; 71010; 71275; 76770; 80048; 80053; 80307; 81001; 81025; 82550; 82553; 82607; 82728; 82746; 82962; 83540; 83550; 83735; 84484; 85025; 85045; 87040; 87077; 87086; 87088; 87186; 93005; 93010; 94640; 96365; 96375; 99285; J0696; J1644; J1885; J2060; J2405; J2543; J3480; J3490; J7030; J7512; J7620

== ENCOUNTER 2017-03-19 08:09 | Emergency (ER) | payer OTHER ==
[2017-03-19 08:26] VITALS: BP 128/82
--- NOTE | 2017-03-19 08:57 | ER Document Report ---
ED Respiratory Problem - General Chief Complaint: Shortness Of Breath Stated Complaint: CHEST PAIN/SHORTNESS OF BREATH Time Seen by Provider: 03/19/17 08:55 Notes: The patient is a 32-year-old female, PMHx lupus, current smoker, childhood asthma, who presents with 1 week of shortness of breath and left upper chest wall pain when she coughs. She says it is worsening over the past few days. She denies hemoptysis, OCP use, fevers, recent travel, recent surgery, nausea, vomiting, headache, back pain or sputum. TRAVEL OUTSIDE OF THE [place] IN LAST 30 DAYS: No - Related Data Allergies/Adverse Reactions: No Known Allergies Allergy (Verified 03/25/14 02:56) Past Medical History - General Information source: Patient - Social History Smoking Status: Unknown if Ever Smoked Family History: None, DM Pulmonary Medical History: Reports: Hx Asthma Endocrine Medical History: Reports: Hx Diabetes Mellitus Type 2 Renal/ Medical History: Denies: Hx Peritoneal Dialysis Musculoskeltal Medical History: Reports Hx Arthritis Psychiatric Medical History: Reports: Hx Depression Past Surgical History: Reports: Hx Section - x3, Hx Tubal Ligation - Immunizations Immunizations up to date: Yes Hx Diphtheria, Pertussis, Tetanus Vaccination: Yes Review of Systems - Review of Systems Notes: REVIEW OF SYSTEMS: CONSTITUTIONAL: -fevers, -chills EENT: -eye pain, -difficulty swallowing, -nasal congestion CARDIOVASCULAR: +chest pain, -syncope. RESPIRATORY: +cough, +SOB GASTROINTESTINAL: -abdominal pain, -nausea, -vomiting, -diarrhea GENITOURINARY: -dysuria, -hematuria MUSCULOSKELETAL: -back pain, -neck pain SKIN: -rash or skin lesions. HEMATOLOGIC: -easy bruising or bleeding. LYMPHATIC: -swollen, enlarged glands. NEUROLOGICAL: -altered mental status or loss of consciousness, -headache, - neurologic symptoms PSYCHIATRIC: -anxiety, -depression. ALL OTHER SYSTEMS REVIEWED AND NEGATIVE. Physical Exam - Vital signs Vitals: Temp Pulse Resp BP Pulse Ox 99.0 F 89 20 128/82 H 100 03/19/17 08:24 03/19/17 08:24 03/19/17 08:24 03/19/17 08:24 03/19/17 08:24 - Notes Notes: PHYSICAL EXAMINATION: GENERAL: Well-appearing, well-nourished and in no acute distress. HEAD: Atraumatic, normocephalic. EYES: Pupils equal round and reactive to light, extraocular movements intact, sclera anicteric, conjunctiva are normal. ENT: nares patent, oropharynx clear without exudates. Moist mucous membranes. NECK: Normal range of motion, supple without lymphadenopathy LUNGS: No respiratory distress. Slight rhonchi and wheezing in the left upper lobe. HEART: Regular rate and rhythm without murmurs. Mild tenderness over left upper chest wall. ABDOMEN: Soft, nontender, normoactive bowel sounds. No guarding, no rebound. No masses appreciated. EXTREMITIES: Normal range of motion, no pitting or edema. No calf tenderness. No cyanosis. NEUROLOGICAL: Cranial nerves grossly intact. Normal speech, normal gait. Normal sensory and motor exams. PSYCH: Normal mood, normal affect. SKIN: Warm, Dry, normal turgor, no rashes or lesions noted. Course - Re-evaluation Re-evalutation: Patient appears very well and is in no respiratory distress. Her vital signs are stable and she is PERC negative. With the slight wheezing and coughing, will treat her for bronchitis with a dose of Decadron and albuterol as needed at home. She is not and UA is clean. She will follow with her primary care physician for further evaluation and treatment. - Vital Signs Vital signs: Temp Pulse Resp BP Pulse Ox 99.0 F 89 20 128/82 H 100 03/19/17 08:24 03/19/17 08:24 03/19/17 08:24 03/19/17 08:24 03/19/17 08:24 - Laboratory Laboratory results interpreted by me: 03/19/17 09:40 Urine Ascorbic Acid 40 H - Diagnostic Test Radiology reviewed: Image reviewed, Reports reviewed Radiology results interpreted by me: CXR: NAD - EKG Interpretation by Oh EKG shows normal: Sinus rhythm, [place], Intervals, QRS Complexes, ST-T Waves Rate: Normal When compared to previous EKG there are: No significant change Discharge - Discharge Clinical Impression: Shortness of breath, Bronchitis Chest pain Qualifiers: Chest pain type: unspecified Qualified Code(s): R07.9 - Chest pain, unspecified Condition: Good Disposition: HOME, SELF-CARE Additional Instructions: BRONCHITIS WITH BRONCHOSPASM (WHEEZING): You have bronchitis with bronchospasm (wheezing). Sometimes people develop wheezing with a chest cold. This occurs either because of an underlying tendency toward asthma or because the virus itself irritates the bronchial tubes. This irritation causes cough, shortness of breath, and wheezing. Emergency treatment of bronchospasm may include adrenaline shots or bronchodilator aerosol. You may feel lightheaded and have a rapid pulse for an hour or two. Rest and get plenty of fluids. At home, we'll treat you with a bronchodilator inhaler. Corticosteroids may be required for some patients. Until you recover, avoid chemical fumes, dusts, pollens, and exercising in very cold or dry air. If you smoke, stop now! Most cases of bronchitis get better without antibiotics. We prescribe antibiotics when we believe bacteria are damaging your airways, or if there's high risk the bronchitis will worsen into pneumonia. Increase your fluid intake. A cool mist humidifier may make your lungs more comfortable. An expectorant (cough medicine that loosens phlegm) can help. Repeated episodes of bronchitis and bronchospasm may result in lung damage -- for example, chronic bronchitis, recurrent pneumonias, or emphysema. If you develop a fever, increased wheezing, chest pain, or severe shortness of breath, you should contact the doctor immediately. INHALED BRONCHODILATORS: You have received a treatment of and/or prescription for an inhaled bronchodilator -- a medication which stimulates the airways in the lung to dilate. This improves the flow of air in asthma, bronchitis, and emphysema. These medicines have some similarity to adrenaline, and can cause similar side effects: shakiness, racing heart, and a sense of nervousness. These side effects decrease with time. Contact your doctor if these side effects are severe. Do not over-use the medicine. Too-frequent use of the inhaler may make it ineffective. Call your doctor if the inhaler is not controlling your symptoms at the prescribed doses. STEROID MEDICATION: You have been given an injection of or oral medicine of the cortisone/ steroid class. This medication is used to control inflammation or allergy. Leo t is usually only given for a short period of time, until the acute process subsides. There are usually no side effects from short-term use of cortisone-like medications. Some persons feel an increased sense of well-being and are not sleepy at bedtime. Long-term use of cortisone medications is best avoided, unless required for a severe condition. If your condition does not remit, or relapses after the course of corticosteroid medication, you should consult your physician. USE OF ACETAMINOPHEN (Tylenol): Acetaminophen may be taken for pain relief or fever control. It's much safer than aspirin, offering a wider range of "safe" dosages. It is safe during . Some brand names are Tylenol, Panadol, Datril, Anacin 3, Tempra, and Liquiprin. Acetaminophen can be repeated every four hours. The following are maximum recommended dosages: >89 pounds or adults 650 mg to 900 mg Acetaminophen can be repeated every four hours. Maximum dose not to exceed 4000 mg a day. SMOKING: If you smoke, you should stop smoking. The tar and chemicals in cigarette smoke are harmful. Smoking has been shown to cause: emphysema chronic bronchitis lung cancer mouth and throat cancer stomach and pancreas cancer premature aging defects In addition, smoking increases ear and lung infections in children of smokers. FOLLOW-UP CARE: If you have been referred to a physician for follow-up care, call the physician s office for an appointment as you were instructed or within the next two days. If you experience worsening or a significant change in your symptoms, notify the physician immediately or return to the Emergency Department at any time for re-evaluation. Prescriptions: Albuterol Sulfate [Proair HFA Inhalation Aerosol 8.5 gm MDI] 2 puff IH Q4H PRN # 1 mdi PRN Reason: Forms: Elevated Blood Pressure, Smoking Cessation Education Referrals: [facility] [Outside] - Follow up as needed
[2017-03-19] MEDS ORDERED: DEXAMETHASONE 4 MG TABLET PO ONE (09:29)
--- NOTE | 2017-03-19 09:34 | RADIOLOGY REPORT (SQ) ---
EXAM DESCRIPTION: CHEST PA/LAT COMPLETED DATE/TIME: 03/19/2017 9:21 am REASON FOR STUDY: chest pain, SOB COMPARISON: CT angio chest 01/16/2017 Two-view chest 04/01/2012 EXAM PARAMETERS: NUMBER OF VIEWS: two views TECHNIQUE: Digital Frontal and Lateral radiographic views of the chest acquired. RADIATION DOSE: NA LIMITATIONS: none FINDINGS: LUNGS AND PLEURA: No opacities, masses or pneumothorax. No pleural effusion. MEDIASTINUM AND HILAR STRUCTURES: No masses or contour abnormalities. HEART AND VASCULAR STRUCTURES: Heart normal size. No evidence for failure. BONES: No acute findings. HARDWARE: None in the chest. OTHER: No other significant finding. IMPRESSION: NO SIGNIFICANT RADIOGRAPHIC FINDING IN THE CHEST. TECHNICAL DOCUMENTATION: JOB ID: [id number] [employer]- All Rights Reserved
[2017-03-19 10:31] LABS: APPEARANCE,URINE SLIGHTLY-CLOUDY; BILIRUBIN,URINE NEGATIVE (NEGATIVE); GLUCOSE, URINE NEGATIVE (NEGATIVE); KETONES,URINE NEGATIVE (NEGATIVE); LEUKOCYTE ESTERASE,URINE NEGATIVE (NEGATIVE); NITRITE,URINE NEGATIVE (NEGATIVE); PROTEIN,URINE NEGATIVE (NEGATIVE); URINE SPECIFIC GRAVITY 1.019; UROBILINOGEN,URINE NEGATIVE mg/dL (<2.0)
--- NOTE | 2017-03-19 13:38 | EKG REPORT ---
SEVERITY:- BORDERLINE ECG - SINUS RHYTHM INFERIOR Q WAVES, PROBABLY NORMAL VARIATION : Confirmed by: Ishmael Coreas MD 19-Mar-2017 13:37:26
== END 2017-03-19 10:40 | disposition home or self-care (01) ==
LOC: ER 08:09
DX: J45.909 Unspecified asthma, uncomplicated (principal); R07.89 Other chest pain; R06.02 Shortness of breath; E11.9 Type 2 diabetes mellitus without complications; F17.200 Nicotine dependence, unspecified, uncomplicated
CPT/HCPCS: 71020; 81001; 81025; 93005; 93010; 99285

== ENCOUNTER 2017-06-14 07:17 | Emergency (ER) | payer OTHER ==
[2017-06-14] MEDS ORDERED: KETOROLAC TROMETHAMINE 60 MG/2 ML SDV IM ONE (08:18)
--- NOTE | 2017-06-14 09:13 | RADIOLOGY REPORT (SQ) ---
EXAM DESCRIPTION: L SPINE WHOLE COMPLETED DATE/TIME: 06/14/2017 8:52 am REASON FOR STUDY: acute LBP COMPARISON: None. NUMBER OF VIEWS: Five views including obliques. TECHNIQUE: AP, lateral, oblique, and sacral radiographic images acquired of the lumbar spine. LIMITATIONS: None. FINDINGS: MINERALIZATION: Normal. SEGMENTATION: 5 lumbar type vertebra. ALIGNMENT: Normal. VERTEBRAE/DISC: The vertebral bodies, disc interspaces, pedicles, and spinous processes are intact. There is marked degenerative sclerosis of the SI joints bilaterally. IMPRESSION: Symmetrical bilateral sacroiliitis. Differential considerations include osteitis conden sans ends iliac, inter a pathic arthritis, rheumatoid arthritis, hyperparathyroidism. TECHNICAL DOCUMENTATION: JOB ID: [id number] 2010 [employer]- All Rights Reserved
--- NOTE | 2017-06-14 09:45 | ER Document Report ---
ED General - General Chief Complaint: Hip Pain Stated Complaint: HIP PAIN Time Seen by Provider: 06/14/17 07:31 Mode of Arrival: Ambulatory Information source: Patient TRAVEL OUTSIDE OF THE [place] IN LAST 30 DAYS: No - HPI Notes: 32-year-old female history of sciatica, return arthritis and lupus presents today with complaints of lower back pain that radiates down her right lower leg 3 days. Patient states her car broke down 2 days ago, she had to walk 3 miles but she thinks that may have aggravated her sciatica 2 days ago. Patient does take methotrexate daily. denies any trauma. Pain is 6 out of 10, achy and sharp. Denies any numbness or tingling down bilateral lower extremity remedies denies any weakness in bilateral lower extremities not tried any over-the- counter medications denies fevers, chills, chest pain,palpitations, shortness of breath, dyspnea, nausea, vomiting, diarrhea, abdominal pain, hematuria, blurred vision, double vision, loss of vision, speech changes, LH, dizziness, syncope, headaches, wheezing, ST, URI, neck pain, weakness, bowel or bladder dysfunction, saddle anesthesia, numbness or tingling in bilateral upper or lower extremities equally, muscle paralysis, weakness in bilateral upper or lower extremities equally or rash. Denies IV drug use. - Related Data Allergies/Adverse Reactions: No Known Allergies Allergy (Verified 06/14/17 07:21) Past Medical History - General Information source: Patient - Social History Smoking Status: Unknown if Ever Smoked Family History: Reviewed & Not Pertinent, DM Patient has suicidal ideation: No Patient has homicidal ideation: No Pulmonary Medical History: Reports: Hx Asthma Endocrine Medical History: Reports: Hx Diabetes Mellitus Type 2 Renal/ Medical History: Denies: Hx Peritoneal Dialysis Musculoskeltal Medical History: Reports Hx Arthritis Psychiatric Medical History: Reports: Hx Depression Past Surgical History: Reports: Hx Section - x3, Hx Tubal Ligation - Immunizations Immunizations up to date: Yes Hx Diphtheria, Pertussis, Tetanus Vaccination: Yes Review of Systems - Review of Systems Constitutional: No symptoms reported EENT: No symptoms reported Cardiovascular: No symptoms reported Respiratory: No symptoms reported Gastrointestinal: No symptoms reported Genitourinary: No symptoms reported Female Genitourinary: No symptoms reported Musculoskeletal: See HPI Skin: No symptoms reported Hematologic/Lymphatic: No symptoms reported Neurological/Psychological: No symptoms reported Physical Exam - Vital signs Vitals: Temp Pulse Resp BP Pulse Ox 98.1 F 110 H 20 132/86 H 100 06/14/17 07:24 06/14/17 07:24 06/14/17 07:24 06/14/17 07:24 06/14/17 07:24 - Notes Notes: PHYSICAL EXAMINATION: GENERAL: Well-appearing, well-nourished and in no acute distress. HEAD: Atraumatic, normocephalic. EYES: Pupils equal round and reactive to light, extraocular movements intact, conjunctiva are normal. ENT: Nares patent, oropharynx clear without exudates. Moist mucous membranes. NECK: Normal range of motion, supple without lymphadenopathy LUNGS: Breath sounds clear to auscultation bilaterally and equal. No wheezes rales or rhonchi. HEART: Regular rate and rhythm without murmurs ABDOMEN: Soft, nontender, nondistended abdomen. No guarding, no rebound. No masses appreciated. Female : deferred Musculoskeletal: Normal range of motion, no pitting or edema. No cyanosis.Pain with flexion and extension at 30 degrees, positive straight leg test. Normal hip rotation. DTR +2 in BLE equally. Strength 5 out of 5 both distally and proximally to bilateral lower extremities normal motor and sensory function in BLE equally. Distal pulses + 2 BLE equally. Noted paraspinal tenderness near L2 and L3. No spinal tenderness. No CVA tenderness bilaterally. Femoral pulses + 2 bilaterally and equally. No abrasions, scars, lacerations, ecchymosis of any recent trauma. NEUROLOGICAL: Cranial nerves grossly intact. Normal speech, normal gait. Normal sensory, motor exams PSYCH: Normal mood, normal affect. SKIN: Warm, Dry, normal turgor, no rashes or lesions noted. Course - Re-evaluation Re-evalutation: Discussed the results of the radiology as well as the diagnosis at great length. Lumbar x-ray shows bilateral sacroiliitis which coincides with a history of return arthritis. She was started on methotrexate, we will not had any advised to apply warm compresses, follow-up with client care specialist, take [id number] ibuprofen and Tylenol as needed for pain. Discussed the need to return to the ER for any new or worsening sx. Patient understands to take the Rx as directed. All questions answered. Patient comfortable with the decision to go home. After performing a Medical Screening Examination, I estimate there is LOW risk for EXPANDING OR RUPTURED ABDOMINAL AORTIC ANEURYSM, CAUDA EQUINA SYNDROME, EPIDURAL MASS ABSCESS OR LESION(S), OSTEOMYELITIS,PERSONAL HISTORY OF CANCER, IMMUNOSUPPERSSSION, HISTORY OF IV DRUG USE, FRACTURE, CORD COMPERSSION, CANCER, RETROPERITONEAL BLEED, SPINAL EPIDURAL HEMATOMA, or HERNIATED DISK CAUSING SEVERE SPINAL STENOSIS, thus I consider the discharge disposition reasonable. I have reevaluated this patient multiple times and no significant life threatening changes are noted. The patient and I have discussed the diagnosis and risks, and we agree with discharging home and close follow-up. We also discussed returning to the Emergency Department immediately if new or worsening symptoms occur with the understanding that symptoms and presentations can change. We have discussed the symptoms which are most concerning (e.g., saddle anesthesia, urinary or bowel incontinence or retention, changing or worsening pain) that necessitate immediate return. - Vital Signs Vital signs: Temp Pulse Resp BP Pulse Ox 98.4 F 96 18 125/81 100 06/14/17 10:06/14/17 10:06/14/17 10:06/14/17 10:06/14/17 10:00 Discharge - Discharge Clinical Impression: Low back pain Qualifiers: Chronicity: acute Back pain laterality: midline Sciatica presence: with sciatica Condition: Good Disposition: HOME, SELF-CARE Additional Instructions: LOW BACK PAIN: Three out of every four people will have an episode of disabling back pain during their lifetime. Most commonly the pain is due to straining of the muscles and ligaments in the low back. Usual treatment includes: (1) Rest on a firm surface. Avoid lying on your stomach. (2) Ice pack the painful area. After a few days, gentle heat may be used intermittently to relax the area, or ice packs can be continued. (3) Medication may be needed -- muscle relaxers and antiinflammatory medicines are commonly used. (4) As the back improves, exercises are prescribed to strengthen the back and abdominal muscles. Your doctor will advise you on the proper care for your back at each stage in your recovery. You may be better in a few days -- or healing may take several weeks. If new symptoms of a "herniated disc" (radiation of pain, numbness, or tingling down the back of the leg or weakness in the leg) occur, you should be re-examined. Further testing may be necessary. PAIN MEDICATION INJECTION: You have received an injection of a pain medication. You should experience significant pain relief within 45 minutes. If this injection was a narcotic -- it will impair your judgement, slow your reaction time and make you sleepy (as well as relieve your pain). Narcotics also can cause nausea. You should not drive, work with machinery, or perform any task requiring mental alertness until all effects of the medication are gone -- six to eight hours. Do not take any alcohol, or sedatives, and do not take any other medication without checking with your physician. ICE PACKS: Apply ice packs frequently against the painful area. Many different schedules are recommended, such as "20 minutes on, 20 minutes off" or "one hour ice, two hours rest." If you need to work, you may need to go longer between ice treatments. You should plan to have the area ice packed AT LEAST one fourth of the time. The ice should be applied over the wrap, tape, or splint, or over a layer of cloth -- not directly against the skin. Some ice bags have a built-in cloth and can be put directly on the skin. WARM PACKS: After approximately two days, apply gentle heat (such as a heating pad or hot water bottle) for about 20 to 30 minutes about every two hours -- at least four times daily. Warmth and elevation will help you make a more rapid recovery , and will ease the pain considerably. Do not use HOT heat, and never apply heat for longer than 30 minutes. The continuous heat can invisibly damage skin and muscles -- even when no burn is seen on the surface. Damaged muscles can make you MORE sore. FOLLOW-UP CARE: If you have been referred to a physician for follow-up care, call the physician s office for an appointment as you were instructed or within the next two days. If you experience worsening or a significant change in your symptoms, notify the physician immediately or return to the Emergency Department at any time for re-evaluation. Please follow up with the [facility] [address] [place] [id number] Return immediately for any new or worsening symptoms. Follow up with primary care provider, call tomorrow to make followup appointment. Prescriptions: Ibuprofen 600 mg PO QIDP PRN #20 tablet PRN Reason: Forms: Return to Work Referrals: TOMMIE QUIJANO MD [ACTIVE STAFF] - Follow up in 3-5 days BRAD SHARPE MD [ACTIVE STAFF] - Follow up in 3-5 days
[2017-06-14 10:02] VITALS: BP 125/81
== END 2017-06-14 10:00 | disposition home or self-care (01) ==
LOC: ER 07:17
DX: M54.40 Lumbago with sciatica, unspecified side (principal); M79.604 Pain in right leg; M25.551 Pain in right hip; X58.XXXA Exposure to other specified factors, initial encounter
CPT/HCPCS: 99283; 96372; 72110; J1885

== ENCOUNTER 2018-02-01 10:14 | Emergency (ER) | payer OTHER ==
--- NOTE | 2018-02-01 10:30 | ER Document Report ---
ED Medical Screen (RME) - General Chief Complaint: Vomiting Stated Complaint: FEVER Time Seen by Provider: 02/01/18 10:27 Mode of Arrival: Ambulatory Information source: Patient TRAVEL OUTSIDE OF THE [place] IN LAST 30 DAYS: No - HPI Patient complains to provider of: fever, bodyaches Onset: Yesterday - pt states she felt warm yesterday with arthralgias and myalgias with vomiting and dizziness - Related Data Allergies/Adverse Reactions: No Known Allergies Allergy (Verified 02/01/18 10:14) Past Medical History Pulmonary Medical History: Reports: Hx Asthma Endocrine Medical History: Reports: Hx Diabetes Mellitus Type 2 Renal/ Medical History: Denies: Hx Peritoneal Dialysis Musculoskeltal Medical History: Reports Hx Arthritis Psychiatric Medical History: Reports: Hx Depression Past Surgical History: Reports: Hx Section - x3, Hx Tubal Ligation - Immunizations Immunizations up to date: Yes Hx Diphtheria, Pertussis, Tetanus Vaccination: Yes History of Influenza Vaccine for 01/2017 - 06/2017 Season: Yes Influenza Administration Date for 01/2017 - 06/2017 Season: 01/03/17 Physical Exam - Vital signs Vitals: Temp Pulse Resp BP Pulse Ox 98.7 F 116 H 16 131/87 H 98 02/01/18 10:17 02/01/18 10:17 02/01/18 10:17 02/01/18 10:17 02/01/18 10:17 Course - Vital Signs Vital signs: Temp Pulse Resp BP Pulse Ox 98.7 F 116 H 16 131/87 H 98 02/01/18 10:17 02/01/18 10:17 02/01/18 10:17 02/01/18 10:17 02/01/18 10:17
--- NOTE | 2018-02-01 10:42 | ER Document Report ---
ED General - General Chief Complaint: Vomiting Stated Complaint: FEVER Time Seen by Provider: 02/01/18 10:27 Mode of Arrival: Ambulatory Notes: 32-year-old female complaining of nausea and diarrhea last night. She vomited twice this morning she is concerned and afraid to put anything in her stomach she feels very hungry and thirsty. No dysuria. No headache. No fever. No chest pain or shortness of breath. TRAVEL OUTSIDE OF THE [place] IN LAST 30 DAYS: No - Related Data Allergies/Adverse Reactions: No Known Allergies Allergy (Verified 02/01/18 10:14) Past Medical History - General Information source: Patient - Social History Smoking Status: Current Every Day Smoker Frequency of alcohol use: Rare Drug Abuse: None Family History: Reviewed & Not Pertinent, DM Patient has suicidal ideation: No Patient has homicidal ideation: No Pulmonary Medical History: Reports: Hx Asthma Endocrine Medical History: Reports: Hx Diabetes Mellitus Type 2 Renal/ Medical History: Denies: Hx Peritoneal Dialysis Musculoskeletal Medical History: Reports Hx Arthritis Psychiatric Medical History: Reports: Hx Depression Past Surgical History: Reports: Hx Section - x3, Hx Tubal Ligation - Immunizations Immunizations up to date: Yes Hx Diphtheria, Pertussis, Tetanus Vaccination: Yes Review of Systems - Review of Systems Constitutional: See HPI EENT: See HPI Cardiovascular: No symptoms reported Respiratory: No symptoms reported Gastrointestinal: See HPI Genitourinary: No symptoms reported Female Genitourinary: No symptoms reported Musculoskeletal: No symptoms reported Skin: No symptoms reported Hematologic/Lymphatic: No symptoms reported Neurological/Psychological: No symptoms reported Physical Exam - Vital signs Vitals: Temp Pulse Resp BP Pulse Ox 98.7 F 116 H 16 131/87 H 98 02/01/18 10:17 02/01/18 10:17 02/01/18 10:17 02/01/18 10:17 02/01/18 10:17 Interpretation: Normal - General General appearance: Appears well, Alert - HEENT Head: Normocephalic, Atraumatic Eyes: Normal Conjunctiva: Normal Pupils: PERRL Mucous membranes: Moist Pharynx: Erythema. No: Tonsillar hypertrophy Neck: Supple. No: Lymphadenopathy - Respiratory Respiratory status: No respiratory distress Chest status: Nontender Breath sounds: Normal Chest palpation: Normal - Cardiovascular Rhythm: Regular Heart sounds: Normal auscultation Murmur: No - Abdominal Inspection: Normal Distension: No distension Bowel sounds: Normal Tenderness: Nontender Organomegaly: No organomegaly - Back Back: Normal, Nontender - Extremities General upper extremity: Normal inspection, Nontender, Normal color, Normal ROM , Normal temperature General lower extremity: Normal inspection, Nontender, Normal color, Normal ROM , Normal temperature, Normal weight bearing. No: Myriam's sign - Neurological Neuro grossly intact: Yes Cognition: Normal Orientation: AAOx4 [place] Coma Scale Eye Opening: Spontaneous Jessica Coma Scale Verbal: Oriented Jessica Coma Scale Motor: Obeys Commands [place] Coma Scale Total: 15 Speech: Normal Motor strength normal: LUE, RUE, LLE, RLE Sensory: Normal - Psychological Associated symptoms: Normal affect, Normal mood - Skin Skin Temperature: Warm Skin Moisture: Dry Skin Color: Normal Skin irregularity: negative: Rash Course - Re-evaluation Re-evalutation: 02/01/18 11:46 Patient will try Zofran ODT and to orally hydrate rather than getting an IV. Her urine does show a specific gravity of 1.030, no infection, CBC and chemistry are normal. I added a lipase and pending that result. 02/01/18 12:32 Lipase is normal patient is able to keep fluids down. - Vital Signs Vital signs: Temp Pulse Resp BP Pulse Ox 98.7 F 116 H 16 131/87 H 100 02/01/18 10:17 02/01/18 10:30 02/01/18 10:30 02/01/18 10:17 02/01/18 10:30 - Laboratory Result Diagrams: 02/01/18 10:40 02/01/18 10:40 Laboratory results interpreted by me: 02/01/18 02/01/18 02/01/18 10:40 10:40 10:40 RDW 14.1 H Lipase 20.0 L Urine Urobilinogen 2.0 H Urine Ascorbic Acid 40 H Discharge - Discharge Clinical Impression: vomiting and diarrhea Condition: Good Disposition: HOME, SELF-CARE Instructions: Antinausea Medication ([facility]), Diarrhea, Nonspecific ([facility]), Myalagia (Muscle Pain) ([facility]), Nausea or Vomiting, Nonspecific ([facility]) Additional Instructions: Drink plenty of fluids and rest today Return to the emergency room for any worsening of symptoms Urine culture is pending Copy of lab were given to you Prescriptions: Ondansetron HCl [Zofran 4 mg Tablet] 1 - 2 tab PO Q4H PRN #20 tablet PRN Reason: Forms: Return to Work
[2018-02-01 10:58] LABS: ABSOLUTE LYMPHOCYTES (AUTO) 0.8 10^3/uL (0.5-4.7); ABSOLUTE MONOCYTES (AUTO) 0.4 10^3/uL (0.1-1.4); ABSOLUTE NEUT (AUTO) 4.4 10^3/uL (1.7-8.2); BASOPHILS % (AUTO) 0.5 % (0-2); EOSINOPHILS % (AUTO) 0.2 % (0-6); HEMATOCRIT 39.7 % (36.0-47.0); HEMOGLOBIN 13.1 g/dL (12.0-15.5); LYMPHOCYTES % (AUTO) 14.3 % (13-45); MEAN CORPUSCULAR HEMOGLOBIN 28.8 pg (27.0-33.4); MEAN CORPUSCULAR HGB CONC 32.9 g/dL (32.0-36.0); MEAN CORPUSCULAR VOLUME 88 fl (80-97); MONOCYTES % (AUTO) 7.4 % (3-13); PLATELET COUNT 348 10^3/uL (150-450); RED BLOOD COUNT 4.53 10^6/uL (3.72-5.28); RED CELL DISTRIBUTION WIDTH 14.1 % (11.5-14.0); SEGMENTED NEUTROPHILS % (AUTO) 77.6 % (42-78); TOTAL CELLS COUNTED % (AUTO) 100 %; WHITE BLOOD COUNT 5.7 10^3/uL (4.0-10.5)
[2018-02-01 11:02] LABS: APPEARANCE,URINE SLIGHTLY-CLOUDY; BILIRUBIN,URINE NEGATIVE (NEGATIVE); COLOR,URINE YELLOW; GLUCOSE, URINE NEGATIVE (NEGATIVE); KETONES,URINE NEGATIVE (NEGATIVE); LEUKOCYTE ESTERASE,URINE NEGATIVE (NEGATIVE); NITRITE,URINE NEGATIVE (NEGATIVE); PROTEIN,URINE NEGATIVE (NEGATIVE)
--- NOTE | 2018-02-01 11:05 | RADIOLOGY REPORT (SQ) ---
EXAM DESCRIPTION: CHEST 2 VIEWS COMPLETED DATE/TIME: 02/01/2018 10:57 am REASON FOR STUDY: weakness COMPARISON: 03/19/2017. EXAM PARAMETERS: NUMBER OF VIEWS: two views TECHNIQUE: Digital Frontal and Lateral radiographic views of the chest acquired. RADIATION DOSE: NA LIMITATIONS: none FINDINGS: LUNGS AND PLEURA: No opacities, masses or pneumothorax. No pleural effusion. MEDIASTINUM AND HILAR STRUCTURES: No masses or contour abnormalities. HEART AND VASCULAR STRUCTURES: Heart normal size. No evidence for failure. BONES: No acute findings. HARDWARE: None in the chest. OTHER: No other significant finding. IMPRESSION: NO ACUTE RADIOGRAPHIC FINDING IN THE CHEST. TECHNICAL DOCUMENTATION: JOB ID: [id number] [employer]- All Rights Reserved Reading location - IP/workstation name: [email or web address]
[2018-02-01 11:25] LABS: ALANINE AMINOTRANSFERASE 39 U/L (9-52); ALBUMIN 3.8 g/dL (3.5-5.0); ALKALINE PHOSPHATASE 63 U/L (38-126); ANION GAP 8 (5-19); ASPARTATE AMINO TRANSFERASE 22 U/L (14-36); BILIRUBIN,DIRECT 0.1 mg/dL (0.0-0.4); BILIRUBIN,TOTAL 0.3 mg/dL (0.2-1.3); BLOOD UREA NITROGEN 13 mg/dL (7-20); CALCIUM 9.6 mg/dL (8.4-10.2); CARBON DIOXIDE 26 mmol/L (22-30); CHLORIDE 104 mmol/L (98-107); GLUCOSE 100 mg/dL (75-110); POTASSIUM 4.5 mmol/L (3.6-5.0); SODIUM 137.5 mmol/L (137-145); TOTAL PROTEIN 6.8 g/dL (6.3-8.2)
[2018-02-01] MEDS ORDERED: ONDANSETRON 4 MG TAB.RAPDIS PO ONE (11:38)
[2018-02-01 12:35] VITALS: BP 126/88
== END 2018-02-01 12:48 | disposition home or self-care (01) ==
LOC: ER 10:14
DX: R11.2 Nausea with vomiting, unspecified (principal); R19.7 Diarrhea, unspecified; R50.9 Fever, unspecified; F17.200 Nicotine dependence, unspecified, uncomplicated; E11.9 Type 2 diabetes mellitus without complications; Z98.51 Tubal ligation status
CPT/HCPCS: 99284; 36415; 87086; 83690; 85025; 81025; 80053; 81001; 71046; S0119

== ENCOUNTER 2018-06-01 12:21 | Observation (INO) | payer OTHER ==
[2018-06-01] MEDS ORDERED: ASPIRIN 81 MG TABLET, CHEWABLE PO ONE (12:53)
[2018-06-01] MEDS ORDERED: MORPHINE SULFATE 10 MG/ML INJ IV ONE (12:55)
--- NOTE | 2018-06-01 12:55 | ER Document Report ---
ED Medical Screen (RME) - General Chief Complaint: Chest Pain Stated Complaint: COUGH,DIZZY,CHEST PAIN Time Seen by Provider: 06/01/18 12:46 Mode of Arrival: Ambulatory Information source: Patient Notes: 33-year-old female with a past medical history significant for diabetes, hypertension, hyperlipidemia, lupus presents emergency department complaints of left chest pain. She states that she woke up at 2 AM with a dull aching sensation in the left chest. She states that it eventually went into a squeeze type sensation. The chest pain resolved. She states that around 10 AM the chest pain came back again. She states that it is currently feeling like a dull aching sensation. There is radiation of the pain to the left shoulder. She is having associated shortness of breath and lightheadedness. Patient denies a history of coronary artery disease. She does not know her family history. She states that she does smoke. She did not take any aspirin prior to arrival. I have greeted and performed a rapid initial assessment of this patient. A comprehensive ED assessment and evaluation of the patient, analysis of test results and completion of the medical decision making process will be conducted by additional ED providers. PHYSICAL EXAMINATION: GENERAL: Well-appearing, well-nourished and in no acute distress. HEAD: Atraumatic, normocephalic. EYES: Pupils equal round extraocular movements intact, conjunctiva are normal. ENT: Nares patent NECK: Normal range of motion LUNGS: No respiratory distress Musculoskeletal: Normal range of motion NEUROLOGICAL: Normal speech, normal gait. PSYCH: Normal mood, normal affect. SKIN: Warm, Dry, normal turgor, no rashes or lesions noted. TRAVEL OUTSIDE OF THE [place] IN LAST 30 DAYS: No - Related Data Allergies/Adverse Reactions: No Known Allergies Allergy (Verified 06/01/18 12:22) Past Medical History Pulmonary Medical History: Reports: Hx Asthma Endocrine Medical History: Reports: Hx Diabetes Mellitus Type 2 Renal/ Medical History: Denies: Hx Peritoneal Dialysis Musculoskeltal Medical History: Reports Hx Arthritis Psychiatric Medical History: Reports: Hx Depression Past Surgical History: Reports: Hx Section - x3, Hx Tubal Ligation - Immunizations Immunizations up to date: Yes Hx Diphtheria, Pertussis, Tetanus Vaccination: Yes History of Influenza Vaccine for 01/2017 - 06/2017 Season: Yes Influenza Administration Date for 01/2017 - 06/2017 Season: 01/03/17 Physical Exam - Vital signs Vitals: Temp Pulse Resp BP Pulse Ox 98.8 F 78 24 H 135/94 H 100 06/01/18 12:41 06/01/18 12:41 06/01/18 12:41 06/01/18 12:41 06/01/18 12:41 Course - Vital Signs Vital signs: Temp Pulse Resp BP Pulse Ox 98.8 F 78 24 H 135/94 H 100 06/01/18 12:41 06/01/18 12:41 06/01/18 12:41 06/01/18 12:41 06/01/18 12:41
[2018-06-01 13:48] LABS: ABSOLUTE BASOPHILS # (AUTO) 0.1 10^3/uL (0.0-0.2); ABSOLUTE EOSINOPHILS # (AUTO) 0.1 10^3/uL (0.0-0.6); ABSOLUTE LYMPHOCYTES (AUTO) 2.5 10^3/uL (0.5-4.7); ABSOLUTE MONOCYTES (AUTO) 0.6 10^3/uL (0.1-1.4); ABSOLUTE NEUT (AUTO) 5.3 10^3/uL (1.7-8.2); BASOPHILS % (AUTO) 0.8 % (0-2); EOSINOPHILS % (AUTO) 1.2 % (0-6); HEMOGLOBIN 12.7 g/dL (12.0-15.5); LYMPHOCYTES % (AUTO) 29.2 % (13-45); MEAN CORPUSCULAR HEMOGLOBIN 26.3 pg (27.0-33.4); MEAN CORPUSCULAR HGB CONC 32.5 g/dL (32.0-36.0); MEAN CORPUSCULAR VOLUME 81 fl (80-97); MONOCYTES % (AUTO) 6.9 % (3-13); PLATELET COUNT 288 10^3/uL (150-450); RED BLOOD COUNT 4.84 10^6/uL (3.72-5.28); RED CELL DISTRIBUTION WIDTH 17.4 % (11.5-14.0); SEGMENTED NEUTROPHILS % (AUTO) 61.9 % (42-78); TOTAL CELLS COUNTED % (AUTO) 100 %; WHITE BLOOD COUNT 8.6 10^3/uL (4.0-10.5)
[2018-06-01 13:51] LABS: ALANINE AMINOTRANSFERASE 24 U/L (9-52); ALBUMIN 4.4 g/dL (3.5-5.0); ALKALINE PHOSPHATASE 57 U/L (38-126); ANION GAP 8 (5-19); ASPARTATE AMINO TRANSFERASE 18 U/L (14-36); BILIRUBIN,DIRECT 0.2 mg/dL (0.0-0.4); BILIRUBIN,TOTAL 0.4 mg/dL (0.2-1.3); BLOOD UREA NITROGEN 15 mg/dL (7-20); CALCIUM 9.8 mg/dL (8.4-10.2); CARBON DIOXIDE 26 mmol/L (22-30); CHLORIDE 106 mmol/L (98-107); GLUCOSE 87 mg/dL (75-110); POTASSIUM 4.3 mmol/L (3.6-5.0); SODIUM 140.2 mmol/L (137-145); TOTAL PROTEIN 7.4 g/dL (6.3-8.2)
--- NOTE | 2018-06-01 14:10 | RADIOLOGY REPORT (SQ) ---
EXAM DESCRIPTION: CHEST SINGLE VIEW COMPLETED DATE/TIME: 06/01/2018 1:53 pm REASON FOR STUDY: chest pain COMPARISON: 02/01/2018 EXAM PARAMETERS: NUMBER OF VIEWS: One view. TECHNIQUE: Single frontal radiographic view of the chest acquired. RADIATION DOSE: NA LIMITATIONS: None. FINDINGS: LUNGS AND PLEURA: No opacities, masses or pneumothorax. No pleural effusion. MEDIASTINUM AND HILAR STRUCTURES: No masses. Contour normal. HEART AND VASCULAR STRUCTURES: Heart normal in size. Normal vasculature. BONES: No acute findings. HARDWARE: None in the chest. OTHER: No other significant finding. IMPRESSION: NO ACUTE RADIOGRAPHIC FINDING IN THE CHEST. TECHNICAL DOCUMENTATION: JOB ID: [id number] [id number] [employer]- All Rights Reserved Reading location - IP/workstation name: [email or web address]
[2018-06-01 14:13] LABS: APPEARANCE,URINE SLIGHTLY-CLOUDY; BILIRUBIN,URINE NEGATIVE (NEGATIVE); COLOR,URINE YELLOW; GLUCOSE, URINE NEGATIVE (NEGATIVE); KETONES,URINE NEGATIVE (NEGATIVE); LEUKOCYTE ESTERASE,URINE NEGATIVE (NEGATIVE); NITRITE,URINE NEGATIVE (NEGATIVE); PROTEIN,URINE NEGATIVE (NEGATIVE); URINE SPECIFIC GRAVITY 1.025
[2018-06-01] MEDS ORDERED: REGADENOSON INJ 0.4 MG/5 ML DISP.SYRIN IV ONE (14:59)
[2018-06-01] MEDS: NITROGLYCERIN 0.4 MG/TAB 25 TAB/BOTTLE SL PRN ×2 (15:20→15:38)
--- NOTE | 2018-06-01 15:56 | ER Document Report ---
ED Cardiac - General Chief Complaint: Chest Pain Stated Complaint: COUGH,DIZZY,CHEST PAIN Time Seen by Provider: 06/01/18 12:46 Mode of Arrival: Ambulatory Notes: RME Provider note: 33-year-old female with a past medical history significant for diabetes, hypertension, hyperlipidemia, lupus presents emergency department complaints of left chest pain. She states that she woke up at 2 AM with a dull aching sensation in the left chest. She states that it eventually went into a squeeze type sensation. The chest pain resolved. She states that around 10 AM the chest pain came back again. She states that it is currently feeling like a dull aching sensation. There is radiation of the pain to the left shoulder. She is having associated shortness of breath and lightheadedness. Patient denies a history of coronary artery disease. She does not know her family history. She states that she does smoke. She did not take any aspirin prior to arrival. MY HPI: Upon my evaluation of the patient she states that the morphine that was administered by the E provider has not changed the patient's generalized left chest achy pain. Patient's denying any increase in her pain on movement or palpation. Patient continues to deny any cough, congestion, runny nose, fever. Patient states she has never followed up with a director community organization and believes that she has never had a cardiac stress test. Past medical history: Diabetes, lupus, hypertension, hyperlipidemia, rheumatoid arthritis Medications: Metformin, spironolactone, methotrexate, hydroxyzine, amlodipine, Wellbutrin, folic acid Allergies: None TRAVEL OUTSIDE OF THE [place] IN LAST 30 DAYS: No - Related Data Allergies/Adverse Reactions: No Known Allergies Allergy (Verified 06/01/18 12:22) Past Medical History - General Information source: Patient - Social History Smoking Status: Current Every Day Smoker Frequency of alcohol use: None Drug Abuse: None Family History: Reviewed & Not Pertinent, DM Patient has suicidal ideation: No Patient has homicidal ideation: No - Past Medical History Cardiac Medical History: Reports: Hx Hypercholesterolemia, Hx Hypertension Pulmonary Medical History: Reports: Hx Asthma Endocrine Medical History: Reports: Hx Diabetes Mellitus Type 2 Renal/ Medical History: Denies: Hx Peritoneal Dialysis Musculoskeletal Medical History: Reports Hx Arthritis Psychiatric Medical History: Reports: Hx Depression Past Surgical History: Reports: Hx Section - x3, Hx Tubal Ligation - Immunizations Immunizations up to date: Yes Hx Diphtheria, Pertussis, Tetanus Vaccination: Yes Review of Systems - Review of Systems Constitutional: No symptoms reported EENT: No symptoms reported Cardiovascular: See HPI Respiratory: No symptoms reported Gastrointestinal: No symptoms reported Genitourinary: No symptoms reported Female Genitourinary: No symptoms reported Musculoskeletal: No symptoms reported Skin: No symptoms reported Hematologic/Lymphatic: No symptoms reported Neurological/Psychological: No symptoms reported Physical Exam - Vital signs Vitals: Temp Pulse Resp BP Pulse Ox 98.8 F 78 24 H 135/94 H 100 06/01/18 12:41 06/01/18 12:41 06/01/18 12:41 06/01/18 12:41 06/01/18 12:41 - Notes Notes: GENERAL: Alert, interacts well. No acute distress. HEAD: Normocephalic, atraumatic. EYES: Pupils equal, round, and reactive to light. Extraocular movements intact. ENT: Oral mucosa moist, tongue midline. NECK: Full range of motion. Supple. Trachea midline. LUNGS: Clear to auscultation bilaterally, no wheezes, rales, or rhonchi. No respiratory distress. HEART: Regular rate and rhythm. No murmur Chest: No crepitus felt, no erythema or ecchymosis noted anterior posterior chest wall. ABDOMEN: Soft, non-tender. Non-distended. Bowel sounds present in all 4 quadrants. EXTREMITIES: Moves all 4 extremities spontaneously. No edema, normal radial and dorsalis pedis pulses bilaterally. No cyanosis. BACK: no cervical, thoracic, lumbar midline tenderness. No saddle anesthesia, normal distal neurovascular exam. NEUROLOGICAL: Alert and oriented x3. Normal speech. cranial nerves II through XII grossly intact PSYCH: Normal affect, normal mood. SKIN: Warm, dry, normal turgor. No rashes or lesions noted. Course - Re-evaluation Re-evalutation: Per the patient initial treatments ordered by E provider have not helped her left chest pain. Patient was administered 2 total sublingual nitroglycerin which the patient states has alleviated her chest pain. Due to her past medical history, the fact that nitroglycerin helped her chest pain she does have a heart score of 4, with her medical problems and suspicious story. Discussed case with hospitalist Dr. Mancilla who agrees with admission for chest pain rule out. Patient currently chest pain-free, vitals stable at this time. - Vital Signs Vital signs: Temp Pulse Resp BP Pulse Ox 98.8 F 78 24 H 135/94 H 100 06/01/18 12:41 06/01/18 12:41 06/01/18 12:41 06/01/18 12:41 06/01/18 12:41 - Laboratory Result Diagrams: 06/01/18 13:24 06/01/18 13:24 Laboratory results interpreted by me: 06/01/18 06/01/18 13:24 13:24 MCH 26.3 L RDW 17.4 H Urine Urobilinogen 2.0 H Discharge - Discharge Clinical Impression: Chest pain Qualifiers: Chest pain type: unspecified Qualified Code(s): R07.9 - Chest pain, unspecified Condition: Stable Disposition: ADMITTED OBSERVATION Admitting Provider: Hospitalist - Dr. Mancilla Unit Admitted: Telemetry
[2018-06-01] MEDS ORDERED: ACETAMINOPHEN 325 MG TABLET PO PRN (16:33)
[2018-06-01] MEDS ORDERED: HYDROXYZINE PAMOATE 50 MG CAPSULE PO PRN (16:40)
[2018-06-01] MEDS ORDERED: ALBUTEROL SULFATE HFA (90 MCG/PUFF) 200 PUFF/8.5 GM MDI IH PRN (16:40)
[2018-06-01] MEDS ORDERED: GLUCAGON,HUMAN RECOMB 1 MG INJ IM PRN (16:51)
[2018-06-01] MEDS ORDERED: DEXTROSE 50%-WATER 25 GM/50 ML DISP.SYRIN IV PRN ×2 (16:51)
[2018-06-01] MEDS ORDERED: DEXTROSE 40% GEL 15 GM TUBE PO PRN ×2 (16:51)
[2018-06-01] MEDS ORDERED: NITROGLYCERIN 0.4 MG/TAB 25 TAB/BOTTLE SL PRN (16:56)
[2018-06-01] MEDS ORDERED: MORPHINE SULFATE 10 MG/ML INJ IV PRN (17:29)
[2018-06-01 17:34] LABS: CREATINE KINASE MB 0.69 ng/mL (<4.55)
[2018-06-01 17:35] LABS: TROPONIN I < 0.012 ng/mL
--- NOTE | 2018-06-01 17:37 | PDOC H&P ---
History of Present Illness Admission Date/PCP: 06/01/18 15:59 MAYTE ARIAS MD Patient complains of: chest pain History of Present Illness: ELIEL VELASCO is a 33 year old female with history of diabetes mellitus hypertension hypercholesterolemia rheumatoid arthritis, lupus came to the emergency room with complaints of left-sided chest pain of 1 day duration. According to the patient pain was started yesterday and her son told her if the pain is persisting today she needs to come to the hospital. Patient had chest pain again this morning when she was lying down and pain intensity was 6 x 10 associated with mild nausea dizziness, pain lasted for a few minutes each time with radiation to both shoulders denies any sweating but complaining of sh ortness of breath decided to came to the emergency room for further evaluation. In the ER in the ER nitroglycerin was given chest pain was relieved. EKG and cardiac workup were negative. She also received aspirin. Given 1 dose of morphine in the ER. Medical consult was called for admission. Past Medical History Cardiac Medical History: Reports: Hyperlipidema, Hypertension Pulmonary Medical History: Reports: Asthma Endocrine Medical History: Reports: Diabetes Mellitus Type 2 Musculoskeltal Medical History: Reports: Arthritis Psychiatric Medical History: Reports: Depression Past Surgical History Past Surgical History: Reports: Section - x3, Tubal Ligation Social History Smoking Status: Current Every Day Smoker Frequency of Alcohol Use: None Hx Recreational Drug Use: No Drugs: None Hx Prescription Drug Abuse: No - Advance Directive Resuscitation Status: Full Code Family History Family History: Reviewed & Not Pertinent, DM Parental Family History Reviewed: Yes - pt is adopted Children Family History Reviewed: Yes Sibling(s) Family History Reviewed.: Yes Medication/Allergy Home Medications: Folic Acid 1 mg PO DAILY 01/17/17 Ibuprofen [Motrin 800 mg Tablet] 800 mg PO Q8HP PRN 01/17/17 Metformin HCl [Glucophage 500 mg Tablet] 500 mg PO BIDACBS 01/17/17 Methotrexate Sodium [Methotrexate] 5 tab PO WE@1000 01/17/17 Prednisone 5 mg PO DAILY 01/17/17 Venlafaxine HCl [Venlafaxine HCl ER] 150 mg PO DAILY 01/17/17 Hydroxyzine Pamoate [Vistaril 50 mg Capsule] 50 mg PO Q6HP PRN #30 capsule 01/21/17 Levofloxacin [Levaquin 750 mg Tablet] 750 mg PO DAILY #10 tablet 01/21/17 Albuterol Sulfate [Proair HFA Inhalation Aerosol 8.5 gm MDI] 2 puff IH Q4H PRN #1 mdi 03/19/17 Ibuprofen 600 mg PO QIDP PRN #20 tablet 06/14/17 Ondansetron HCl [Zofran 4 mg Tablet] 1 - 2 tab PO Q4H PRN #20 tablet 02/01/18 Allergies/Adverse Reactions: No Known Allergies Allergy (Verified 06/01/18 12:22) Review of Systems Constitutional: ABSENT: fever(s), headache(s), night sweats Eyes: ABSENT: visual disturbances Ears: ABSENT: hearing changes Respiratory: PRESENT: dyspnea Gastrointestinal: ABSENT: abdominal pain, constipation, diarrhea, hematemesis, hematochezia, nausea, vomiting Musculoskeletal: ABSENT: joint swelling Integumentary: ABSENT: rash, wounds Neurological: PRESENT: dizziness. ABSENT: abnormal gait, abnormal speech, confusion, focal weakness, syncope Psychiatric: ABSENT: anxiety, depression, homidical ideation, suicidal ideation Physical Exam Vital Signs: Temp Pulse Resp BP Pulse Ox 98.8 F 78 24 H 135/94 H 100 06/01/18 12:41 06/01/18 12:41 06/01/18 12:41 06/01/18 12:41 06/01/18 12:41 Intake & Output 05/31/18 06/01/18 06/02/18 06:59 06:59 06:59 Weight 105.6 kg General appearance: PRESENT: no acute distress Head exam: PRESENT: atraumatic Teeth exam: PRESENT: poor dentation Neck exam: ABSENT: carotid bruit, JVD, lymphadenopathy, thyromegaly Respiratory exam: PRESENT: clear to auscultation [place]. ABSENT: rales, rhonchi, wheezes Cardiovascular exam: PRESENT: RRR. ABSENT: diastolic murmur, rubs, systolic murmur GI/Abdominal exam: PRESENT: normal bowel sounds, soft. ABSENT: distended, guarding, mass, organolmegaly, rebound, tenderness Extremities exam: PRESENT: full ROM. ABSENT: calf tenderness, clubbing, pedal edema Neurological exam: PRESENT: alert, awake, oriented to person, oriented to place, oriented to time, oriented to situation, CN II-XII grossly intact. ABSENT: motor sensory deficit Psychiatric exam: PRESENT: appropriate affect, normal mood. ABSENT: homicidal ideation, suicidal ideation Results Laboratory Results: 06/01/18 13:24 06/01/18 13:24 06/01/18 06/01/18 06/01/18 13:24 13:24 13:24 WBC 8.6 RBC 4.84 Hgb 12.7 Hct 39.0 MCV 81 MCH 26.3 L MCHC 32.5 RDW 17.4 H Plt Count 288 Seg Neutrophils % 61.9 Lymphocytes % 29.2 Monocytes % 6.9 Eosinophils % 1.2 Basophils % 0.8 Absolute Neutrophils 5.3 Absolute Lymphocytes 2.5 Absolute Monocytes 0.6 Absolute Eosinophils 0.1 Absolute Basophils 0.1 Sodium 140.2 Potassium 4.3 Chloride 106 Carbon Dioxide 26 Anion Gap 8 BUN 15 Creatinine 0.76 Est GFR ( Amer) > 60 Est GFR (Non-Af Amer) > 60 Glucose 87 Calcium 9.8 Total Bilirubin 0.4 AST 18 ALT 24 Alkaline Phosphatase 57 Total Protein 7.4 Albumin 4.4 Urine Color YELLOW Urine Appearance SLIGHTLY-CLOUDY Urine pH 6.0 Ur Specific [place] 1.025 Urine Protein NEGATIVE Urine Glucose (UA) NEGATIVE Urine Ketones NEGATIVE Urine Blood NEGATIVE Urine Nitrite NEGATIVE Ur Leukocyte Esterase NEGATIVE Urine WBC (Auto) 1 Urine RBC (Auto) 1 06/01/18 13:24 Troponin I < 0.012 Impressions: Chest X-Ray 06/01/18 12:53 IMPRESSION: NO ACUTE RADIOGRAPHIC FINDING IN THE CHEST. Assessment & Plan - Diagnosis (1) Chest pain Qualifiers: Chest pain type: unspecified Qualified Code(s): R07.9 - Chest pain, unspecified Is this a current diagnosis for this admission?: Yes Plan: 06/01/2018-patient is going to be admitted for observation for chest pain. Cardiac enzymes x3 along with EKG are requested. Started on aspirin, atorvastatin and placed on Lovenox Lovenox 40 mg subcu daily. Lipid panel was requested for tomorrow. Stress test was requested. Patient will be placed on oxygen 2 L nasal cannula and to be given morphine 5 mg IV every 4 as needed for chest pain. She is going to receive nitroglycerin every 5 minutes as needed for chest pain. If the stress test is negative probably discharge tomorrow. He has risk factors for acute coronary disease-morbid obesity, history of diabetes mellitus, hypertension and hyperlipidemia. Patient is adopted so she does not know the family history. (2) Diabetes Qualifiers: 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 Diabetes mellitus intermediate insulin use: without lobsterman use Diabetes mellitus complication status: with unspecified complications Qualified Code(s): E09.69 - Drug or chemical induced diabetes mellitus with other specified complication Is this a current diagnosis for this admission?: Yes Plan: 06/01/2018-patient has history of type 2 diabetes mellitus. Metformin at home. During the hospital stay Metformin will be on hold and started on insulin sliding scale. Dietary consult is going to be requested. (3) Morbid obesity with BMI of 40.0-44.9, adult Is this a current diagnosis for this admission?: Yes Plan: 06/01/2018 morbid obesity with BMI more than 40 diet exercise weight loss, lifestyle modifications are advised dietary consult was requested. (4) Tobacco abuse Is this a current diagnosis for this admission?: Yes Plan: 06/01/2018 patient is a chronic smoker smokes more than 1 pack/day patient is requesting nicotine patch. Looking counseling was provided for more than 10 minutes strongly advised to quit smoking. (5) Depression Qualifiers: Depression Type: unspecified Qualified Code(s): F32.9 - Major depressive disorder, single episode, unspecified Is this a current diagnosis for this admission?: Yes Plan: 06/01/2018-patient has a history of depression on Effexor 150 mg p.o. daily which was renewed during this hospital admission. (6) SLE (systemic lupus erythematosus) Qualifiers: Systemic lupus erythematosus type: unspecified Systemic lupus erythematosus organ involvement: unspecified Qualified Code(s): M32.9 - Systemic lupus erythematosus, unspecified Is this a current diagnosis for this admission?: Yes Plan: 06/01/2018 patient has history of lupus on methotrexate 5 mg p.o. daily plan is to resume the medication. - Time Time Spent: 50 to 70 Minutes Smoking Cessation Education: over 10 minutes Medications reviewed and adjusted accordingly: Yes Anticipated discharge: Home
[2018-06-01] MEDS ORDERED: ONDANSETRON 4 MG TAB.RAPDIS PO PRN (17:45)
[2018-06-01 17:56] LABS: URINE AMPHETAMINES SCREEN NEGATIVE; URINE BARBITURATES SCREEN NEGATIVE; URINE BENZODIAZEPINES SCREEN NEGATIVE; URINE COCAINE SCREEN NEGATIVE; URINE MARIJUANA (THC) SCREEN NEGATIVE; URINE METHADONE SCREEN NEGATIVE; URINE PHENCYCLIDINE SCREEN NEGATIVE
[2018-06-01] MEDS: GUAIFENESIN 600 MG TABLET.SA PO SCH (21:07)
[2018-06-01] MEDS: FAMOTIDINE 20 MG TABLET PO SCH (21:07)
[2018-06-01] MEDS: INSULIN LISPRO 100 UNIT/ML 3 ML VIAL SUBCUT SCH (21:11)
[2018-06-01] MEDS ORDERED: ATORVASTATIN CALCIUM 20 MG TABLET PO SCH (22:00)
--- NOTE | 2018-06-02 00:03 | EKG REPORT ---
SEVERITY:- NORMAL ECG - SINUS RHYTHM : Confirmed by: Gabriela Puente 02-Jun-2018 00:03:03
--- NOTE | 2018-06-02 00:04 | EKG REPORT ---
SEVERITY:- NORMAL ECG - SINUS RHYTHM : Confirmed by: Gabriela Puente 02-Jun-2018 00:03:14
[2018-06-02 06:42] LABS: ABSOLUTE EOSINOPHILS # (AUTO) 0.1 10^3/uL (0.0-0.6); ABSOLUTE LYMPHOCYTES (AUTO) 2.3 10^3/uL (0.5-4.7); ABSOLUTE MONOCYTES (AUTO) 0.4 10^3/uL (0.1-1.4); BASOPHILS % (AUTO) 0.5 % (0-2); EOSINOPHILS % (AUTO) 0.9 % (0-6); HEMATOCRIT 37.7 % (36.0-47.0); HEMOGLOBIN 12.2 g/dL (12.0-15.5); LYMPHOCYTES % (AUTO) 29.2 % (13-45); MEAN CORPUSCULAR HGB CONC 32.4 g/dL (32.0-36.0); MEAN CORPUSCULAR VOLUME 80 fl (80-97); MONOCYTES % (AUTO) 5.5 % (3-13); PLATELET COUNT 265 10^3/uL (150-450); RED BLOOD COUNT 4.71 10^6/uL (3.72-5.28); RED CELL DISTRIBUTION WIDTH 16.9 % (11.5-14.0); SEGMENTED NEUTROPHILS % (AUTO) 63.9 % (42-78); TOTAL CELLS COUNTED % (AUTO) 100 %; WHITE BLOOD COUNT 7.8 10^3/uL (4.0-10.5)
[2018-06-02 06:56] LABS: ALANINE AMINOTRANSFERASE 32 U/L (9-52); ALKALINE PHOSPHATASE 53 U/L (38-126); ANION GAP 9 (5-19); ASPARTATE AMINO TRANSFERASE 17 U/L (14-36); BILIRUBIN,DIRECT 0.1 mg/dL (0.0-0.4); BILIRUBIN,TOTAL 0.4 mg/dL (0.2-1.3); BLOOD UREA NITROGEN 15 mg/dL (7-20); CALCIUM 9.4 mg/dL (8.4-10.2); CARBON DIOXIDE 24 mmol/L (22-30); CHLORIDE 105 mmol/L (98-107); CHOLESTEROL 192.07 mg/dL (0-200); CREATINE KINASE 108 U/L (30-135); GLUCOSE 94 mg/dL (75-110); POTASSIUM 4.4 mmol/L (3.6-5.0); SODIUM 137.7 mmol/L (137-145); TOTAL PROTEIN 6.4 g/dL (6.3-8.2); TRIGLYCERIDES 108 mg/dL (<150)
[2018-06-02 07:08] LABS: DIRECT LDL 130 mg/dL (<100)
[2018-06-02 07:21] LABS: CREATINE KINASE MB 0.76 ng/mL (<4.55)
[2018-06-02 07:25] LABS: NT PRO BNP < 11 pg/mL (<125); TROPONIN I < 0.012 ng/mL
[2018-06-02] MEDS: INSULIN LISPRO 100 UNIT/ML 3 ML VIAL SUBCUT SCH ×2 (07:50→12:11)
[2018-06-02] MEDS ORDERED: ENOXAPARIN SODIUM INJ 40 MG/0.4 ML DISP.SYRIN SUBCUT SCH (10:00)
[2018-06-02] MEDS ORDERED: ASPIRIN 325 MG TABLET PO SCH (10:00)
[2018-06-02] MEDS ORDERED: FOLIC ACID 1 MG TABLET PO SCH (10:00)
[2018-06-02] MEDS ORDERED: VENLAFAXINE HCL 75 MG CAP.SR.24H PO SCH (10:00)
[2018-06-02] MEDS ORDERED: PREDNISONE 5 MG TABLET PO SCH (10:00)
[2018-06-02] MEDS: GUAIFENESIN 600 MG TABLET.SA PO SCH (11:00)
[2018-06-02] MEDS: FAMOTIDINE 20 MG TABLET PO SCH (11:00)
[2018-06-02 11:27] LABS: CREATINE KINASE MB 0.73 ng/mL (<4.55)
[2018-06-02 11:36] LABS: TROPONIN I < 0.012 ng/mL
[2018-06-02 13:09] VITALS: BP 136/73
--- NOTE | 2018-06-02 13:59 | PDOC DISCHARGE SUMMARY ---
General - Admit/Disc Date/PCP Admission Date/Primary Care Provider: 06/01/18 15:59 MAYTE ARIAS MD Discharge Date: 06/02/18 - Discharge Diagnosis (1) Chest pain Is this a current diagnosis for this admission?: Yes Summary: 06/01/2018-patient is going to be admitted for observation for chest pain. Cardiac enzymes x3 along with EKG are requested. Started on aspirin, atorvastat in and placed on Lovenox Lovenox 40 mg subcu daily. Lipid panel was requested for tomorrow. Stress test was requested. Patient will be placed on oxygen 2 L nasal cannula and to be given morphine 5 mg IV every 4 as needed for chest pain. She is going to receive nitroglycerin every 5 minutes as needed for chest pain. If the stress test is negative probably discharge tomorrow. He has risk facto rs for acute coronary disease-morbid obesity, history of diabetes mellitus, hypertension and hyperlipidemia. Patient is adopted so she does not know the family history. 06/02/2018-patient came in with chest pain cardiac enzymes are negative EKGs are negative, stress test was negative. Chest pain most likely secondary to musculoskeletal nature. (2) Diabetes Is this a current diagnosis for this admission?: Yes Summary: 06/01/2018-patient has history of type 2 diabetes mellitus. Metformin at home. During the hospital stay Metformin will be on hold and started on insulin sliding scale. Dietary consult is going to be requested. 06/02/2018 hemoglobin A1c 6.2. Patient states metformin at home for diabetes mellitus. Patient was advised to restart take the medications while she is discharged. (3) Morbid obesity with BMI of 40.0-44.9, adult Is this a current diagnosis for this admission?: Yes Summary: 06/02/2018-patient's BMI is more than for 40, diet exercise weight loss lifestyle modifications are not discussed today. Dietary consult was requested during this hospital stay. (4) Tobacco abuse Is this a current diagnosis for this admission?: Yes Summary: 06/02/2018-patient is given the history of chronic smoking smoking close to 1 pack/day. Smoking counseling was provided for more than 10 minutes. Strongly advised to quit smoking. (5) Depression Is this a current diagnosis for this admission?: Yes Summary: 06/01/2018-patient has a history of depression on Effexor 150 mg p.o. daily which was renewed during this hospital admission. 06/02/2018-patient has a history of depression on Effexor 150 mg p.o. daily patient was advised to resume the medication as an outpatient. (6) SLE (systemic lupus erythematosus) Is this a current diagnosis for this admission?: Yes Summary: 06/01/2018 patient has history of lupus on methotrexate 5 mg p.o. daily plan is to resume the medication. 06/02/2018-patient has history of systemic lupus erythematous on methotrexate 5 mg p.o. daily medication was resumed during this hospital stay. Patient was advised to continue this medication at home. - Additional Information Resuscitation Status: Full Code Discharge Diet: Diabetic Discharge Activity: Activity As Tolerated Prescriptions: Aspirin [Aspirin 325 mg Tablet] 325 mg PO DAILY #30 tablet Atorvastatin Calcium [Lipitor 20 mg Tablet] 20 mg PO QHS #30 tablet Home Medications: Albuterol Sulfate [Proair HFA Inhalation Aerosol 8.5 gm MDI] 2 puff IH Q4H PRN [id number] 06/02/18 Amlodipine Besylate [Norvasc 5 mg Tablet] 5 mg PO DAILY 06/02/18 Aspirin [Aspirin 325 mg Tablet] 325 mg PO DAILY #30 tablet 06/02/18 Atorvastatin Calcium [Lipitor 20 mg Tablet] 20 mg PO QHS #30 tablet 06/02/18 Folic Acid [Folvite 1 mg Tablet] 1 mg PO [id number] 06/02/18 Hydroxyzine Pamoate [Vistaril 50 mg Capsule] 50 mg PO 6XD PRN 06/02/18 Metformin HCl [Glucophage 500 mg Tablet] 500 mg PO BIDBS 06/02/18 Methotrexate Sodium [Rheumatrex 2.5 mg Tablet] 12.5 mg PO WE@1000 tablet 06/02/18 Methotrexate Sodium [Rheumatrex 2.5 mg Tablet] 17.5 mg PO MTZ 06/02/18 Ondansetron [Zofran Odt 4 mg Tablet] 4 mg PO Q4HP PRN tab.rapdis 06/02/18 Prednisone [Deltasone 5 mg Tablet] 5 mg PO DAILY tablet 06/02/18 Spironolactone [Aldactone] 50 mg PO DAILY 06/02/18 Tocilizumab [Actemra] 162 mg SQ WE 06/02/18 Venlafaxine HCl ER [Effexor Xr 75 mg Cap.sr] 150 mg PO DAILY cap.sr.24h 06/02/18 History of Present Illness History of Present Illness: ELIEL VELASCO is a 33 year old female with history of diabetes mellitus hypertension hypercholesterolemia rheumatoid arthritis, lupus came to the emergency room with complaints of left-sided chest pain of 1 day duration. A ccording to the patient pain was started yesterday and her son told her if the pain is persisting today she needs to come to the hospital. Patient had chest pain again this morning when she was lying down and pain intensity was 6 x 10 associated with mild nausea dizziness, pain lasted for a few minutes each time with radiation to both shoulders denies any sweating but complaining of shortness of breath decided to came to the emergency room for further evaluation. In the ER in the ER nitroglycerin was given chest pain was relieved. EKG and cardiac workup were negative. She also received aspirin. Given 1 dose of morphine in the ER. Medical consult was called for admission. Physical Exam Vital Signs: Temp Pulse Resp BP Pulse Ox 98.4 F 88 20 136/73 H 96 06/02/18 13:07 06/02/18 13:07 06/02/18 13:07 06/02/18 13:07 06/02/18 13:07 Intake & Output 06/01/18 06/02/18 06/03/18 06:59 06:59 06:59 Intake Total 320 Balance 320 Weight 98.5 kg General appearance: PRESENT: no acute distress Head exam: PRESENT: atraumatic Eye exam: PRESENT: PERRLA Mouth exam: PRESENT: moist Neck exam: ABSENT: carotid bruit, JVD, lymphadenopathy, thyromegaly Respiratory exam: PRESENT: clear to auscultation [place]. ABSENT: rales, rhonchi, wheezes Cardiovascular exam: PRESENT: RRR. ABSENT: diastolic murmur, rubs, systolic mu rmur Pulses: PRESENT: normal dorsalis pedis pul GI/Abdominal exam: PRESENT: normal bowel sounds, soft. ABSENT: distended, guarding, mass, organolmegaly, rebound, tenderness Extremities exam: PRESENT: full ROM. ABSENT: calf tenderness, clubbing, pedal edema Neurological exam: PRESENT: alert, awake, oriented to person, oriented to place, oriented to time, oriented to situation, CN II-XII grossly intact. ABSENT: motor sensory deficit Results Laboratory Results: 06/02/18 05:03 06/02/18 05:03 06/01/18 06/01/18 06/02/18 13:24 13:24 05:03 WBC RBC Hgb Hct MCV MCH MCHC RDW Plt Count Seg Neutrophils % Lymphocytes % Monocytes % Eosinophils % Basophils % Absolute Neutrophils Absolute Lymphocytes Absolute Monocytes Absolute Eosinophils Absolute Basophils Sodium 140.2 137.7 Potassium 4.3 4.4 Chloride 106 105 Carbon Dioxide 26 24 Anion Gap 8 9 BUN 15 15 Creatinine 0.76 0.75 Est GFR ( Amer) > 60 > 60 Est GFR (Non-Af Amer) > 60 > 60 Glucose 87 94 Calcium 9.8 9.4 Total Bilirubin 0.4 0.4 AST 18 17 ALT 24 32 Alkaline Phosphatase 57 53 Total Protein 7.4 6.4 Albumin 4.4 4.0 Triglycerides 108 Cholesterol 192.07 LDL Cholesterol Direct 130 H VLDL Cholesterol 22.0 HDL Cholesterol 41 Urine Color YELLOW Urine Appearance SLIGHTLY-CLOUDY Urine pH 6.0 Ur Specific [place] 1.025 Urine Protein NEGATIVE Urine Glucose (UA) NEGATIVE Urine Ketones NEGATIVE Urine Blood NEGATIVE Urine Nitrite NEGATIVE Ur Leukocyte Esterase NEGATIVE Urine WBC (Auto) 1 Urine RBC (Auto) 1 06/02/18 05:03 WBC 7.8 RBC 4.71 Hgb 12.2 Hct 37.7 MCV 80 MCH 26.0 L MCHC 32.4 RDW 16.9 H Plt Count 265 Seg Neutrophils % 63.9 Lymphocytes % 29.2 Monocytes % 5.5 Eosinophils % 0.9 Basophils % 0.5 Absolute Neutrophils 5.0 Absolute Lymphocytes 2.3 Absolute Monocytes 0.4 Absolute Eosinophils 0.1 Absolute Basophils 0.0 Sodium Potassium Chloride Carbon Dioxide Anion Gap BUN Creatinine Est GFR ( Amer) Est GFR (Non-Af Amer) Glucose Calcium Total Bilirubin AST ALT Alkaline Phosphatase Total Protein Albumin Triglycerides Cholesterol LDL Cholesterol Direct VLDL Cholesterol HDL Cholesterol Urine Color Urine Appearance Urine pH Ur Specific [place] Urine Protein Urine Glucose (UA) Urine Ketones Urine Blood Urine Nitrite Ur Leukocyte Esterase Urine WBC (Auto) Urine RBC (Auto) 06/01/18 06/01/18 06/01/18 13:24 16:45 16:45 Creatine Kinase 121 CK-MB (CK-2) 0.69 Troponin I < 0.012 < 0.012 NT-Pro-B Natriuret Pep 06/01/18 06/01/18 06/02/18 23:00 23:00 05:03 Creatine Kinase 118 108 CK-MB (CK-2) Troponin I < 0.012 NT-Pro-B Natriuret Pep 06/02/18 06/02/18 06/02/18 05:03 10:45 10:45 Creatine Kinase 111 CK-MB (CK-2) 0.76 0.73 Troponin I < 0.012 < 0.012 NT-Pro-B Natriuret Pep < 11 Impressions: Chest X-Ray 06/01/18 12:53 IMPRESSION: NO ACUTE RADIOGRAPHIC FINDING IN THE CHEST. Qualifiers - * PATIENT BEING DISCHARGED WITH ANY OF THE FOLLOWING DIAGNOSIS: No VTE patient discharged on overlapping Therapy?: No
--- NOTE | 2018-06-02 19:52 | DRAGON STRESS TEST REPORT ---
Intravenous Lexiscan Cardiolite stress test using single photon emmision computerized tomography. Date of procedure: 06/02/2018. Ordering Provider: Dr. Mancilla. Patient's status: In the Patient. Indication: Chest pain. Coronary risk factors: Diabetes mellitus, dyslipidemia, and tobacco abuse disorder. Resting EKG: Sinus Rhythm. Within Normal Limits. Stress EKG: No changes of ischemia. Reason for termination: Protocol. Conclusions: Normal EKG and hemodynamic response to IV Lexiscan. Nuclear data: At rest the patient was given 14.25 millicuries of technetium 99m sestamibi injected intravenously. As per protocol rest non gated SPECT images were obtained. Subsequently the patient was given intravenous Lexiscan at a dose of 0.4 mg in 5 mL intravenously, followed by flush with normal saline. Subsequently the stress dose of 47.2 millicuries of technetium 99m sestamibi was injected intravenously. As per protocol stress gated images were obtained. Nuclear interpretation: Review of images showed that there was significant breast attenuation artifact. But in spite of this all segments of the myocardium had normal perfusion at rest, and normal perfusion post stress with IV Lexiscan. All segments of the myocardium had normal motion, contraction, and thickening by gated study. T. I D. ratio was read as abnormal at 1.24, by the computer. Visually this is not reliable, and visually the TID ratio is normal. There is no transient ischemic dilatation of the left ventricle. Computer read rest, and stress left ventricular ejection fraction were 54 %, and he will %, respectively. Visually both the stress and rest ejection fractions were normal, and greater than 55%. Conclusion: 1. There is no scintigraphic evidence of Lexiscan induced myocardial ischemia. 2. There is no scintigraphic evidence of myocardial infarction/scar. Recommendations: Aggressive risk factor modification, and treating the underlying co- morbidities. MTDD
[2018-06-04] MEDS ORDERED: METHOTREXATE SODIUM 2.5 MG TABLET PO SCH (10:00)
== END 2018-06-02 13:35 | disposition home or self-care (01) ==
LOC: ER 12:21 → EH 15:59 → 4N 20:00
PROVIDERS: ADMIT Internal Medicine; ATTEND Internal Medicine
PROC: HZ31ZZZ Individual Counseling for Substance Abuse Treatment, Behavioral (ICD-10-PCS; principal; 2018-06-01)
DX: R07.9 Chest pain, unspecified (principal); E66.01 Morbid (severe) obesity due to excess calories; F17.210 Nicotine dependence, cigarettes, uncomplicated; E11.9 Type 2 diabetes mellitus without complications; F32.9 Major depressive disorder, single episode, unspecified; M32.9 Systemic lupus erythematosus, unspecified; M06.9 Rheumatoid arthritis, unspecified; R11.0 Nausea; R42 Dizziness and giddiness; R06.02 Shortness of breath; I10 Essential (primary) hypertension; Z68.41 Body mass index [BMI] 40.0-44.9, adult; Z79.4 Long term (current) use of insulin; Z79.899 Other long term (current) drug therapy; Z79.82 Long term (current) use of aspirin; Z98.51 Tubal ligation status; Z83.3 Family history of diabetes mellitus
CPT/HCPCS: 93005 ×2; 99285; 96374; 36415 ×2; 82553 ×2; 82962 ×2; 82550 ×2; 85025 ×2; 81025; 80053 ×2; 81001; 84484 ×2; 80307; 83036; 80061; 83880; 93017; 71045; 78452; 93010; 99407; A9500; J2785; S0119; J2270; J1650; J7512; J3490 ×2; Q9969; G0378

== ENCOUNTER 2018-08-27 09:49 | Emergency (ER) | payer OTHER ==
[2018-08-27] MEDS ORDERED: LIDOCAINE 2% VISCOUS SOLN 20 ML UDCUP PO ONE (10:33)
[2018-08-27] MEDS ORDERED: MAG HYDROX/AL HYDROX/SIMETH SUSP 30 ML UDCUP PO ONE (10:33)
[2018-08-27] MEDS ORDERED: ONDANSETRON 4 MG TAB.RAPDIS PO ONE (10:33)
--- NOTE | 2018-08-27 10:35 | ER Document Report ---
ED Medical Screen (RME) - General Chief Complaint: Abdominal Pain Stated Complaint: ABDOMINAL,BACK PAIN Time Seen by Provider: 08/27/18 10:32 Primary Care Provider: MAYTE ARIAS MD [Primary Care Provider] - Follow up as needed Mode of Arrival: Ambulatory Information source: Patient Notes: Patient presents complaining of upper abdominal pain that radiates around to her back. Patient does complain of nausea. Patient denies any vomiting or diarrhea. Patient denies any urinary symptoms or cough. hx: Lupus, RA, diabetes, I have greeted and performed a rapid initial assessment of this patient. A comprehensive ED assessment and evaluation of the patient, analysis of test results and completion of the medical decision making process will be conducted by additional ED providers. TRAVEL OUTSIDE OF THE [place] IN LAST 30 DAYS: No - Related Data Allergies/Adverse Reactions: No Known Allergies Allergy (Verified 08/27/18 10:26) Past Medical History - Social History Chew tobacco use (# tins/day): No Frequency of alcohol use: Rare Drug Abuse: None - Past Medical History Cardiac Medical History: Reports: Hx Hypercholesterolemia, Hx Hypertension Pulmonary Medical History: Reports: Hx Asthma Endocrine Medical History: Reports: Hx Diabetes Mellitus Type 2 Renal/ Medical History: Denies: Hx Peritoneal Dialysis Musculoskeltal Medical History: Reports Hx Arthritis Psychiatric Medical History: Reports: Hx Depression Past Surgical History: Reports: Hx Section - x3, Hx Tubal Ligation - Immunizations Immunizations up to date: Yes Hx Diphtheria, Pertussis, Tetanus Vaccination: Yes History of Influenza Vaccine for 01/2017 - 06/2017 Season: Yes Influenza Administration Date for 01/2017 - 06/2017 Season: 01/03/17 Physical Exam - Vital signs Vitals: Temp Pulse Resp BP Pulse Ox 98.1 F 79 18 144/93 H 100 08/27/18 10:16 08/27/18 10:16 08/27/18 10:16 08/27/18 10:16 08/27/18 10:16 - Abdominal Tenderness: Tender - Epigastric that radiates around to lateral sides Course - Vital Signs Vital signs: Temp Pulse Resp BP Pulse Ox 98.1 F 79 18 144/93 H 100 08/27/18 10:16 08/27/18 10:16 08/27/18 10:16 08/27/18 10:16 08/27/18 10:16 Doctor's Discharge - Discharge Referrals: MAYTE ARIAS MD [Primary Care Provider] - Follow up as needed
[2018-08-27 11:34] LABS: ABSOLUTE EOSINOPHILS # (AUTO) 0.1 10^3/uL (0.0-0.6); ABSOLUTE MONOCYTES (AUTO) 0.3 10^3/uL (0.1-1.4); ABSOLUTE NEUT (AUTO) 3.4 10^3/uL (1.7-8.2); BASOPHILS % (AUTO) 0.5 % (0-2); EOSINOPHILS % (AUTO) 2.5 % (0-6); HEMATOCRIT 41.9 % (36.0-47.0); HEMOGLOBIN 13.5 g/dL (12.0-15.5); LYMPHOCYTES % (AUTO) 33.4 % (13-45); MEAN CORPUSCULAR HEMOGLOBIN 26.6 pg (27.0-33.4); MEAN CORPUSCULAR HGB CONC 32.3 g/dL (32.0-36.0); MEAN CORPUSCULAR VOLUME 82 fl (80-97); MONOCYTES % (AUTO) 5.9 % (3-13); PLATELET COUNT 243 10^3/uL (150-450); RED BLOOD COUNT 5.08 10^6/uL (3.72-5.28); RED CELL DISTRIBUTION WIDTH 16.8 % (11.5-14.0); SEGMENTED NEUTROPHILS % (AUTO) 57.7 % (42-78); TOTAL CELLS COUNTED % (AUTO) 100 %; WHITE BLOOD COUNT 5.9 10^3/uL (4.0-10.5)
[2018-08-27 11:36] LABS: APPEARANCE,URINE SLIGHTLY-CLOUDY; BILIRUBIN,URINE NEGATIVE (NEGATIVE); COLOR,URINE YELLOW; GLUCOSE, URINE NEGATIVE (NEGATIVE); KETONES,URINE NEGATIVE (NEGATIVE); LEUKOCYTE ESTERASE,URINE NEGATIVE (NEGATIVE); NITRITE,URINE NEGATIVE (NEGATIVE); PROTEIN,URINE NEGATIVE (NEGATIVE); UROBILINOGEN,URINE NEGATIVE mg/dL (<2.0)
[2018-08-27 11:53] LABS: ALANINE AMINOTRANSFERASE 32 U/L (9-52); ALBUMIN 4.4 g/dL (3.5-5.0); ALKALINE PHOSPHATASE 52 U/L (38-126); ANION GAP 10 (5-19); ASPARTATE AMINO TRANSFERASE 23 U/L (14-36); BILIRUBIN,DIRECT 0.1 mg/dL (0.0-0.4); BILIRUBIN,TOTAL 0.4 mg/dL (0.2-1.3); BLOOD UREA NITROGEN 15 mg/dL (7-20); CARBON DIOXIDE 29 mmol/L (22-30); CHLORIDE 103 mmol/L (98-107); GLUCOSE 92 mg/dL (75-110); LIPASE 58.5 U/L (23-300); POTASSIUM 4.4 mmol/L (3.6-5.0); SODIUM 141.6 mmol/L (137-145); TOTAL PROTEIN 7.4 g/dL (6.3-8.2)
--- NOTE | 2018-08-27 15:05 | RADIOLOGY REPORT (SQ) ---
EXAM DESCRIPTION: U/S ABDOMEN LIMITED W/O DOP COMPLETED DATE/TIME: 08/27/2018 2:54 pm REASON FOR STUDY: upper abd pain, rad to back COMPARISON: CT angio chest 01/16/2017 Abdominal ultrasound 10/23/2010 TECHNIQUE: Dynamic and static grayscale images acquired of the abdomen and recorded on PACS. Additio nal selected color Doppler and spectral images recorded. LIMITATIONS: Large patient FINDINGS: PANCREAS: No masses. Visualized pancreatic duct normal caliber. LIVER: No masses. Echotexture normal. LIVER VASCULATURE: Normal directional flow of the main portal vein and hepatic veins. GALLBLADDER: No stones. Normal wall thickness. No pericholecystic fluid. ULTRASOUND-DETECTED MCCAULEY'S SIGN: Negative. INTRAHEPATIC DUCTS AND COMMON DUCT: CBD and intrahepatic ducts normal caliber. No filling defects. INFERIOR VENA CAVA: Normal flow. AORTA: No aneurysm. RIGHT KIDNEY: Normal size. Normal echogenicity. No solid or suspicious masses. No hydronephrosis. No calcifications. PERITONEAL AND RIGHT PLEURAL SPACE: No ascites or effusions. OTHER: No other significant findings. IMPRESSION: NORMAL RIGHT UPPER QUADRANT ULTRASOUND. TECHNICAL DOCUMENTATION: JOB ID: [id number] [employer]- All Rights Reserved Reading location - IP/workstation name: [email or web address]
[2018-08-27] MEDS ORDERED: FAMOTIDINE INJ/PF 20 MG/2 ML SDV IV ONE (16:02)
[2018-08-27] MEDS ORDERED: NORMAL SALINE 1000 ML 1,000 ML IV ONE (16:03)
[2018-08-27] MEDS ORDERED: ONDANSETRON HCL INJ/PF 4 MG/2 ML SDV IV ONE (16:03)
[2018-08-27] MEDS ORDERED: HYDROMORPHONE HCL INJ/PF 2 MG/ML AMPULE IV ONE (16:03)
--- NOTE | 2018-08-27 16:06 | ER Document Report ---
ED General - General Chief Complaint: Abdominal Pain Stated Complaint: ABDOMINAL,BACK PAIN Time Seen by Provider: 08/27/18 10:32 Primary Care Provider: MAYTE ARIAS MD [Primary Care Provider] - Follow up as needed Mode of Arrival: Ambulatory Information source: Patient Notes: This is a 33-year-old woman with a history of rheumatoid arthritis, lupus (prednisone, methotrexate), diabetes and hypertension. Patient reports upper abdominal pain radiating to the back associated with nausea. She denies diarrhea. She denies fever. She denies blood in her stool. Pain started 2 days ago. TRAVEL OUTSIDE OF THE [place] IN LAST 30 DAYS: No - HPI Onset: Just prior to arrival Onset/Duration: Gradual Quality of pain: Dull Severity: Moderate Pain Level: 2 Associated symptoms: Nausea. denies: Chest pain, Fever, Shortness of breath Exacerbated by: Denies Relieved by: Denies Similar symptoms previously: Yes Recently seen / treated by doctor: No - Related Data Allergies/Adverse Reactions: No Known Allergies Allergy (Verified 08/27/18 10:26) Past Medical History - General Information source: Patient - Social History Smoking Status: Current Some Day Smoker Cigarette use (# per day): Yes - Half pack per day Chew tobacco use (# tins/day): No Frequency of alcohol use: Rare Drug Abuse: None Lives with: Family Family History: Reviewed & Not Pertinent, DM Patient has suicidal ideation: No Patient has homicidal ideation: No - Past Medical History Cardiac Medical History: Reports: Hx Hypercholesterolemia, Hx Hypertension Pulmonary Medical History: Reports: Hx Asthma Endocrine Medical History: Reports: Hx Diabetes Mellitus Type 2 Renal/ Medical History: Denies: Hx Peritoneal Dialysis Musculoskeletal Medical History: Reports Hx Arthritis Psychiatric Medical History: Reports: Hx Depression Past Surgical History: Reports: Hx Section - x3, Hx Tubal Ligation - Immunizations Immunizations up to date: Yes Hx Diphtheria, Pertussis, Tetanus Vaccination: Yes Review of Systems - Review of Systems Constitutional: denies: Chills, Fever EENT: No symptoms reported Respiratory: No symptoms reported Gastrointestinal: See HPI Genitourinary: No symptoms reported Female Genitourinary: No symptoms reported Musculoskeletal: No symptoms reported Skin: No symptoms reported Hematologic/Lymphatic: No symptoms reported Neurological/Psychological: No symptoms reported Physical Exam - Vital signs Vitals: Temp Pulse Resp BP Pulse Ox 98.1 F 79 18 144/93 H 100 08/27/18 10:16 08/27/18 10:16 08/27/18 10:16 08/27/18 10:16 08/27/18 10:16 Notes: Physical exam: GENERAL: She is alert and oriented x3, no acute distress HEAD: Atraumatic, normocephalic. EYES: Pupils equal round and reactive to light, extraocular movements intact, sclera anicteric, conjunctiva are normal. ENT: TMs normal, nares patent, oropharynx clear without exudates. Moist mucous membranes. NECK: Normal range of motion, supple without obvious mass or JVD. LUNGS: Breath sounds clear to auscultation bilaterally and equal. No wheezes rales or rhonchi. HEART: Regular rate and rhythm without murmurs, rubs or gallops. ABDOMEN: Soft, normoactive bowel sounds. Positive tenderness to palpation in the epigastrium. No guarding, no rebound. No masses appreciated. No Mandel sign. No pain to the lower extremities. EXTREMITIES: Normal range of motion, no pitting or edema. No clubbing or cyanosis. NEUROLOGICAL: Cranial nerves II through XII grossly intact. Normal speech, moving all extremities. PSYCH: Normal mood, normal affect. SKIN: Warm, Dry, normal turgor, no rashes or lesions noted. Course - Re-evaluation Re-evalutation: 08/27/18 21:34 On reassessment, the patient's abdomen is soft and nontender. She states she feels much improved. Instructions given. - Vital Signs Vital signs: Temp Pulse Resp BP Pulse Ox 98.6 F 82 16 139/86 H 100 08/27/18 21:00 08/27/18 21:00 08/27/18 21:00 08/27/18 21:00 08/27/18 21:00 - Laboratory Result Diagrams: 08/27/18 11:18 08/27/18 11:18 Laboratory results interpreted by me: 08/27/18 11:18 MCH 26.6 L RDW 16.8 H - Diagnostic Test Radiology reviewed: Image reviewed, Reports reviewed - CT of the abdomen shows no acute process Discharge - Discharge Clinical Impression: Abdominal pain Condition: Stable Disposition: HOME, SELF-CARE Additional Instructions: As we discussed, your labs and abdominal CT look good today. I want you to take it easy over the next few days, drink plenty of fluids gradually advance her diet. Take the pain medicine as prescribed. Take the nausea medicine as needed. Continue the Pepcid as prescribed. Return to the emergency room for worsening pain, fever (temperature greater than 100.5) or any concerns or getting worse. Follow-up with your primary care doctor in the next few days. The pain medicine you're taking prescribed as a narcotic. There are several important things you should know about this medicine: 1. This medicine contains Tylenol: It is important that you do not take Tylenol (or acetaminophen) while on this medicine. Tylenol is metabolized by the liver and taking too much Tylenol (acetaminophen) can lay to liver damage and even liver failure. 2. Taking narcotics for too long can lead to physical and mental dependence. Take this medicine only if really needed and in the lowest quantity to achieve pain relief. 3. Do not drink alcohol while on this medicine. Alcohol interacts with narcotics and the combination can be dangerous. 4. Do not drive or operate machinery while on this medicine. 5. Narcotics do cause constipation, so drink plenty of fluids and daily stool softeners. Prescriptions: Famotidine [Pepcid 20 mg Tablet] 20 mg PO BID #12 tablet Ondansetron HCl [Zofran 4 mg Tablet] 1 - 2 tab PO Q4H PRN #10 tablet PRN Reason: Oxycodone HCl/Acetaminophen [Percocet 5-325 mg Tablet] 1 - 2 tab PO ASDIR PRN #25 tablet PRN Reason: Forms: Return to Work Referrals: MAYTE ARIAS MD [Primary Care Provider] - Follow up as needed
[2018-08-27] MEDS ORDERED: DIPHENHYDRAMINE HCL 50 MG/ML VIAL IV ONE (17:10)
--- NOTE | 2018-08-27 18:58 | RADIOLOGY REPORT (SQ) ---
EXAM DESCRIPTION: CT ABD/PELVIS WITH IV ONLY COMPLETED DATE/TIME: 08/27/2018 6:38 pm REASON FOR STUDY: abd pain COMPARISON: Right upper quadrant ultrasound 08/27/2018 TECHNIQUE: CT scan of the abdomen and pelvis performed using helical scanning technique with dynamic intravenous contrast injection. No oral contrast. Images reviewed with lung, soft tissue, and bone windows. Reconstructed coronal and sagittal MPR images reviewed. Delayed images for evaluation of the urinary system also acquired. All images stored on PACS. All CT scanners at this facility use dose modulation, iterative reconstruction, and/or weight based d osing when appropriate to reduce radiation dose to as low as reasonably achievable (ALARA). [facility]: Dose Right [facility]: CareDose [facility]: Dose Right [facility]: Teradose 4D [facility]: Cover Lockscreen CONTRAST TYPE AND DOSE: contrast/concentration: Isovue 350.00 mg/ml; Total Contrast Delivered: 100.0 ml; Total Saline Delivered: 72.0 ml RENAL FUNCTION: None required. The patient is less than 50 years old. RADIATION DOSE: CT Rad equipment meets quality standard of care and radiation dose reduction techniq ues were employed. CTDIvol: 20.2 - 21.1 mGy. DLP: 2150 mGy-cm.. LIMITATIONS: None. FINDINGS: LOWER CHEST: Moderate size retrocardiac hiatal hernia LIVER: Normal size. No masses. No dilated ducts. SPLEEN: Normal size. No focal lesions. PANCREAS: No masses. No significant calcifications. No adjacent inflammation or peripancreatic fluid collections. Pancreatic duct not dilated. GALLBLADDER: No identified stones by CT criteria. No inflammatory changes to suggest cholecystitis. ADRENAL GLANDS: No significant masses or asymmetry. RIGHT KIDNEY AND URETER: No solid masses. 3 mm left midpole lungs and 3 mm left lower pole intraren al nonobstructive stones. No hydronephrosis or hydroureter. LEFT KIDNEY AND URETER: No solid masses. No significant calcifications. No hydronephrosis or hydr oureter. AORTA AND VESSELS: No aneurysm. No dissection. Renal arteries, SMA, celiac without stenosis. RETROPERITONEUM: No retroperitoneal adenopathy, hemorrhage or masses. BOWEL AND PERITONEAL CAVITY: No masses or inflammatory changes. No free fluid or peritoneal masses. APPENDIX: Normal. PELVIS: No mass. No free fluid. Normal bladder. ABDOMINAL WALL: No masses. No hernias. BONES: No significant or acute findings. OTHER: No other significant finding. IMPRESSION: NO SIGNIFICANT OR ACUTE FINDING IN THE ABDOMEN OR PELVIS ON CT SCAN WITH IV CONTRAST. TECHNICAL DOCUMENTATION: JOB ID: [id number] Quality ID # [id number]: Final reports with documentation of one or more dose reduction techniques (e.g., Au tomated exposure control, adjustment of the mA and/or kV according to patient size, use of iterative reconstruction technique) 2010 [employer]- All Rights Reserved Reading location - IP/workstation name: [email or web address]
[2018-08-27 21:01] VITALS: BP 139/86
== END 2018-08-27 21:01 | disposition home or self-care (01) ==
LOC: ER 09:49
DX: R10.10 Upper abdominal pain, unspecified (principal); R10.816 Epigastric abdominal tenderness; M54.9 Dorsalgia, unspecified; R11.0 Nausea; E11.9 Type 2 diabetes mellitus without complications; F17.210 Nicotine dependence, cigarettes, uncomplicated; J45.909 Unspecified asthma, uncomplicated; I10 Essential (primary) hypertension; M06.9 Rheumatoid arthritis, unspecified; Z79.899 Other long term (current) drug therapy; Z79.52 Long term (current) use of systemic steroids; Z98.51 Tubal ligation status
CPT/HCPCS: 99284; 96361; 96374; 96375; 36415; 83690; 84703; 85025; 80053; 81001; 76705; 74177; J1200; S0119; J3490; J1170; J2405; J7030; S0028

== ENCOUNTER 2019-04-07 09:48 | Emergency (ER) | payer SELFPAY ==
[2019-04-07] MEDS ORDERED: IPRATROPIUM/ALBUTEROL 0.5-2.5 MG/3 ML AMPUL NEB ONE ×2 (11:27→14:15)
--- NOTE | 2019-04-07 11:32 | ER Document Report ---
ED Medical Screen (RME) - General Chief Complaint: Cold Symptoms Stated Complaint: COUGH/FEVER Time Seen by Provider: 04/07/19 11:22 Primary Care Provider: MAYTE ARIAS MD [Primary Care Provider] - Follow up as needed TRAVEL OUTSIDE OF THE [place] IN LAST 30 DAYS: No - HPI Notes: 04/07/19 11:32 34-year-old female presents emergency room with complaints of myalgias, body aches, productive cough for the last 4 days. Patient states she had asthma as a child, she is a smoker. Patient's heart rate is elevated in triage, patient states that she was not coughing during her vitals. Denies being on control, no recent surgeries, immobilization, blood disorders history of cancer. Patient states she tried [id number] ibuprofen, states her fever did break this morning. She did not get a flu shot. I have greeted and performed a rapid initial assessment of this patient. A comprehensive ED assessment and evaluation of the patient, analysis of test results and completion of the medical decision making process will be conducted by additional ED providers. PHYSICAL EXAMINATION: GENERAL: ill appearing well-nourished and in no acute distress. HEAD: Atraumatic, normocephalic. EYES: Pupils equal round extraocular movements intact, conjunctiva are normal. ENT: Nares patent NECK: Normal range of motion LUNGS: Diminished breath sounds in bilateral upper lobes Musculoskeletal: Normal range of motion NEUROLOGICAL: Normal speech, normal gait. PSYCH: Normal mood, normal affect. SKIN: Warm, Dry, normal turgor, no rashes or lesions noted. - Related Data Allergies/Adverse Reactions: No Known Allergies Allergy (Verified 04/07/19 11:07) Past Medical History - Past Medical History Cardiac Medical History: Reports: Hx Hypercholesterolemia, Hx Hypertension Pulmonary Medical History: Reports: Hx Asthma Endocrine Medical History: Reports: Hx Diabetes Mellitus Type 2 Renal/ Medical History: Denies: Hx Peritoneal Dialysis Musculoskeltal Medical History: Reports Hx Arthritis Psychiatric Medical History: Reports: Hx Depression Past Surgical History: Reports: Hx Section - x3, Hx Tubal Ligation - Immunizations Immunizations up to date: Yes Hx Diphtheria, Pertussis, Tetanus Vaccination: Yes Physical Exam - Vital signs Vitals: Temp Pulse Resp BP Pulse Ox 99.8 F 109 H 19 132/82 H 98 04/07/19 09:52 04/07/19 09:52 04/07/19 09:52 04/07/19 09:52 04/07/19 09:52 Course - Vital Signs Vital signs: Temp Pulse Resp BP Pulse Ox 99.8 F 109 H 19 132/82 H 98 04/07/19 09:52 04/07/19 09:52 04/07/19 09:52 04/07/19 09:52 04/07/19 09:52 Doctor's Discharge - Discharge Referrals: MAYTE ARIAS MD [Primary Care Provider] - Follow up as needed
--- NOTE | 2019-04-07 12:01 | RADIOLOGY REPORT (SQ) ---
EXAM DESCRIPTION: CHEST 2 VIEWS COMPLETED DATE/TIME: 04/07/2019 11:49 am REASON FOR STUDY: cough/fever COMPARISON: 06/01/2018 EXAM PARAMETERS: NUMBER OF VIEWS: two views TECHNIQUE: Digital Frontal and Lateral radiographic views of the chest acquired. RADIATION DOSE: NA LIMITATIONS: none FINDINGS: LUNGS AND PLEURA: No opacities, masses or pneumothorax. No pleural effusion. MEDIASTINUM AND HILAR STRUCTURES: No masses or contour abnormalities. HEART AND VASCULAR STRUCTURES: Heart normal size. No evidence for failure. BONES: No acute findings. HARDWARE: None in the chest. OTHER: No other significant finding. IMPRESSION: NO ACUTE RADIOGRAPHIC FINDING IN THE CHEST. TECHNICAL DOCUMENTATION: JOB ID: [id number] [employer]- All Rights Reserved Reading location - IP/workstation name: [email or web address]
[2019-04-07 13:03] LABS: A TYPE INFLUENZA AG NEGATIVE (NEGATIVE); B INFLUENZA AG NEGATIVE (NEGATIVE)
--- NOTE | 2019-04-07 14:26 | EKG REPORT ---
SEVERITY:- BORDERLINE ECG - SINUS RHYTHM BORDERLINE T ABNORMALITIES, ANTERIOR LEADS : Confirmed by: Gabriela Puente 07-Apr-2019 14:26:05
--- NOTE | 2019-04-07 14:34 | ER Document Report ---
ED Respiratory Problem - General Chief Complaint: Cold Symptoms Stated Complaint: COUGH/FEVER Time Seen by Provider: 04/07/19 11:22 Primary Care Provider: MAYTE ARIAS MD [Primary Care Provider] - Follow up as needed Notes: Patient is a 34-year-old female who presents to the emergency department with a chief complaint of body aches and productive cough. Patient reports she is had a productive cough for about 4 days. Patient reports her daughter was sick with similar symptoms but her sickness only lasted 2 days. Patient reports she does not have a thermometer at home but does break sweats at night does feel like she has a fever and chills. Patient reports body aches, runny nose. Patient denies sore throat or ear pain. Patient reports that she does smoke about 6 cigarettes/day and is around other friends who smoke. Patient reports history of asthma as a child but reports that she did outgrow this. TRAVEL OUTSIDE OF THE [place] IN LAST 30 DAYS: No - Related Data Allergies/Adverse Reactions: No Known Allergies Allergy (Verified 04/07/19 11:07) Past Medical History - General Information source: Patient - Social History Smoking Status: Current Every Day Smoker Cigarette use (# per day): Yes - 6 cigarettes per day Smoking Education Provided: Yes Frequency of alcohol use: None Drug Abuse: None Lives with: Family Family History: Reviewed & Not Pertinent, DM Patient has suicidal ideation: No Patient has homicidal ideation: No - Past Medical History Cardiac Medical History: Reports: Hx Hypercholesterolemia, Hx Hypertension Pulmonary Medical History: Reports: Hx Asthma EENT Medical History: Reports: None Neurological Medical History: Reports: None Endocrine Medical History: Reports: Hx Diabetes Mellitus Type 2 Renal/ Medical History: Reports: None. Denies: Hx Peritoneal Dialysis Malignancy Medical History: Reports: None GI Medical History: Reports: None Musculoskeletal Medical History: Reports Hx Arthritis Skin Medical History: Reports None Psychiatric Medical History: Reports: Hx Depression Traumatic Medical History: Reports: None Infectious Medical History: Reports: None Past Surgical History: Reports: Hx Section - x3, Hx Oral Surgery, Hx Tubal Ligation - Immunizations Immunizations up to date: Yes Hx Diphtheria, Pertussis, Tetanus Vaccination: Yes Review of Systems - Review of Systems Constitutional: See HPI EENT: No symptoms reported Cardiovascular: No symptoms reported Respiratory: See HPI Gastrointestinal: No symptoms reported Genitourinary: No symptoms reported Female Genitourinary: No symptoms reported Musculoskeletal: No symptoms reported Skin: No symptoms reported Hematologic/Lymphatic: No symptoms reported Neurological/Psychological: No symptoms reported Physical Exam - Vital signs Vitals: Temp Pulse Resp BP Pulse Ox 99.8 F 109 H 19 132/82 H 98 04/07/19 09:52 04/07/19 09:52 04/07/19 09:52 04/07/19 09:52 04/07/19 09:52 - Notes Notes: GENERAL: Well-appearing, well-nourished and in no acute distress. HEAD: Atraumatic, normocephalic. EYES: Pupils equal round and reactive to light, extraocular movements intact, sclera anicteric, conjunctiva are normal. ENT: TMs normal, nares patent, oropharynx clear without exudates. Moist mucous membranes. NECK: Normal range of motion, supple without lymphadenopathy or JVD. LUNGS: Scattered rhonchi, no wheezing or rales. Intermittent congested cough du ring examination. HEART: Regular rate and rhythm without murmurs, rubs or gallops. ABDOMEN: Soft, obese, nontender, normoactive bowel sounds. No guarding, no rebound. No masses appreciated. BACK: No cervical, thoracic, lumbar midline tenderness. No saddle anesthesia, normal distal neurovascular exam. GENITOURINARY: Deferred. EXTREMITIES: Normal range of motion, no pitting or edema. No clubbing or cyanosis. NEUROLOGICAL: Cranial nerves II through XII grossly intact. Normal speech, normal gait. PSYCH: Normal mood, normal affect. SKIN: Warm, Dry, normal turgor, no rashes or lesions noted. Course - Re-evaluation Re-evalutation: 04/07/19 14:32 Patient chest x-ray was negative for pneumonia or any acute abnormality, patient 's influenza testing was negative. Patient reports feeling much better after receiving her breathing treatments as this helps induce cough and clears her lungs. Patient reports she feels like she can take a deep breath. We will place the patient on albuterol nebs at home as needed. Patient reports she does have a albuterol nebulizer machine at home. - Vital Signs Vital signs: Temp Pulse Resp BP Pulse Ox 99.8 F 109 H 19 132/82 H 98 04/07/19 09:52 04/07/19 09:52 04/07/19 09:52 04/07/19 09:52 04/07/19 09:52 - Laboratory Laboratory results interpreted by me: Laboratory 04/07/19 12:16 Influenza A (Rapid) NEGATIVE Influenza B (Rapid) NEGATIVE - Diagnostic Test Radiology reviewed: Reports reviewed Radiology results interpreted by me: 04/07/19 14:39 Chest X-Ray 04/07/19 11:27 IMPRESSION: NO ACUTE RADIOGRAPHIC FINDING IN THE CHEST. Discharge - Discharge Clinical Impression: Myalgia, Chills, Productive cough URI (upper respiratory infection) Qualifiers: URI type: unspecified viral URI Qualified Code(s): J06.9 - Acute upper respiratory infection, unspecified Condition: Stable Disposition: HOME, SELF-CARE Additional Instructions: *Today was seen in the emergency department for cough and congestion. Your influenza testing and chest x-ray were negative for pneumonia. Your low symptoms are most likely due to an upper respiratory illness that is usually due from a viral infection. This is highly contagious. The disease can last up to 10 to 14 days. Typically we treat the symptoms. You may get a humidifier in t he home which may help as well as drinking plenty of fluids and using [id number] Mucinex or decongestions. You can use Tylenol and ibuprofen as needed for pain or fever. I have given you a prescription for the albuterol ampules in which she can use if you do find that your machine in. I have also given you an albuterol inhaler to use at home. UPPER RESPIRATORY ILLNESS: You have a viral infection of the respiratory passages -- a "cold." This common infection causes nasal congestion, drainage, and often sore throat and cough. It is highly contagious. The disease usually lasts about 10 to 14 days. There is no "cure" for the viral infection -- it must run its course. If there is a complication, such as bacterial infection in the nose, sinuses, middle ear, or bronchial tubes, antibiotics may be required. The antibiotics won't affect the virus. Drink plenty of fluids. A humidifier may help. An expectorant medication or decongestant may make you more comfortable. Use acetaminophen or ibuprofen for fever or aches. See the doctor if fever persists over two days, if there is any significant worsening of your symptoms, or if you simply fail to improve as expected. DECONGESTANT MEDICATION: A decongestant medicine has been prescribed. Often this medicine is combined in the same tablet with an antihistamine or expectorant. This type of medicine is helpful in treating a bad cold or sinus condition, as well as in treatment of the nasal congestion of hay fever. It is not of much benefit for lung infections. Decongestant medicines are related to stimulants. They can cause an increase in blood pressure and heart rate. Persons with heart disease and high blood pressure should not take decongestants without discussing this with the physician. If you develop palpitations, chest pain, headache, or tremors, stop the medicine and consult your physician. COUGH-SUPPRESSANT & EXPECTORANT MEDICATION: You are to use a cough medication as needed for relief of symptoms. This medicine is a combination of an expectorant (to make the mucous thinner and more easily "coughed up") and a cough suppressant (to reduce the frequency of coughing). The cough-suppressant medicine is related to narcotics. You may experience mild nausea and sleepiness. Some patients who are very sensitive to narcotics may have stomach pain from this medicine. Taking the medicine with food reduces these side effects. Do not drive or work with machinery until you know how this medicine affects you. The expectorant should have no side effects. Iodine-containing expectorants (such as organidin) should not be taken by persons with active thyroid disease unless approved by your doctor. Call the doctor if you develop shortness of breath, hives, rash, itching, lightheadedness, or severe nausea and vomiting. INHALED BRONCHODILATORS: You have received a treatment of and/or prescription for an inhaled bronchodilator -- a medication which stimulates the airways in the lung to dilate. This improves the flow of air in asthma, bronchitis, and emphysema. These medicines have some similarity to adrenaline, and can cause similar side effects: shakiness, racing heart, and a sense of nervousness. These side effects decrease with time. Contact your doctor if these side effects are severe. Do not over-use the medicine. Too-frequent use of the inhaler may make it ineffective. Call your doctor if the inhaler is not controlling your symptoms at the prescribed doses. USE OF ACETAMINOPHEN (Tylenol): Acetaminophen may be taken for pain relief or fever control. It's much safer than aspirin, offering a wider range of "safe" dosages. It is safe during . Some brand names are Tylenol, Panadol, Datril, Anacin 3, Tempra, and Liquiprin. Acetaminophen can be repeated every four hours. The following are maximum recommended dosages: >89 pounds or adults 650 mg to 900 mg Acetaminophen can be repeated every four hours. Maximum dose not to exceed 4000 mg a day. SMOKING: If you smoke, you should stop smoking. The tar and chemicals in cigarette smoke are harmful. Smoking has been shown to cause: emphysema chronic bronchitis lung cancer mouth and throat cancer stomach and pancreas cancer premature aging defects In addition, smoking increases ear and lung infections in children of smokers. FOLLOW-UP CARE: If you have been referred to a physician for follow-up care, call the physicians office for an appointment as you were instructed or within the next two days. If you experience worsening or a significant change in your symptoms, notify the physician immediately or return to the Emergency Department at any time for re-evaluation. Prescriptions: Albuterol Sulfate [Albuterol Sulfate 5mg/1 mL] 5 mg NEB Q4 PRN #30 ml PRN Reason: Referrals: MAYTE ARIAS MD [Primary Care Provider] - Follow up as needed
[2019-04-07] MEDS ORDERED: ALBUTEROL SULFATE HFA (90 MCG/PUFF) 8 GM MDI (1 MDI/ER DISP) IH PRN (14:38)
[2019-04-07 15:37] VITALS: BP 124/78
== END 2019-04-07 15:35 | disposition home or self-care (01) ==
LOC: ER 09:48
DX: J06.9 Acute upper respiratory infection, unspecified (principal); R50.9 Fever, unspecified; M79.10 Myalgia, unspecified site; F17.210 Nicotine dependence, cigarettes, uncomplicated; E78.00 Pure hypercholesterolemia, unspecified; I10 Essential (primary) hypertension; Z98.51 Tubal ligation status
CPT/HCPCS: 93005; 87804; 71046; 93010; J3490; J7620; 94640; 99284